=== PATIENT | female | born 1975 | race Two or more races ===

== ENCOUNTER → 2020-03-06 10:29 | Outpatient (BNVA) | payer OTHER, SELFPAY | PROVIDERS: PCP Internal Medicine; Visit Provider Hospitalist | DX: Z01.811 Encounter for preprocedural respiratory examination (principal); J45.50 Severe persistent asthma, uncomplicated; R07.9 Chest pain, unspecified; Z79.52 Long term (current) use of systemic steroids | CPT/HCPCS: 99214 ==

== ENCOUNTER → 2020-06-01 13:18 | Outpatient (BNVA) | payer OTHER, SELFPAY | PROVIDERS: PCP Internal Medicine; Visit Provider Hospitalist | DX: Z13.89 Encounter for screening for other disorder (principal) ==

== ENCOUNTER → 2020-07-05 14:12 | Outpatient (BNVA) | payer OTHER, SELFPAY | PROVIDERS: PCP Internal Medicine; Visit Provider Physician Assistant ==

== ENCOUNTER → 2020-07-13 09:06 | Outpatient (BNVA) | payer OTHER, SELFPAY | PROVIDERS: PCP Internal Medicine; Visit Provider Hospitalist ==

== ENCOUNTER → 2020-07-25 11:34 | Outpatient (BNVA) | payer OTHER, SELFPAY | PROVIDERS: PCP Internal Medicine; Visit Provider Physician Assistant ==

== ENCOUNTER → 2020-08-16 10:18 | Outpatient (BNVA) | payer OTHER, SELFPAY | PROVIDERS: PCP Internal Medicine; Visit Provider Physician Assistant ==

== ENCOUNTER → 2020-09-11 11:07 | Outpatient (BNVA) | payer OTHER, SELFPAY | PROVIDERS: PCP Internal Medicine; Visit Provider Hospitalist | DX: J45.50 Severe persistent asthma, uncomplicated (principal); J30.9 Allergic rhinitis, unspecified | CPT/HCPCS: 99212 ==

== ENCOUNTER → 2021-03-05 10:44 | Outpatient (BNVA) | payer OTHER, SELFPAY | PROVIDERS: PCP Internal Medicine; Visit Provider Hospitalist | DX: J45.50 Severe persistent asthma, uncomplicated (principal); J30.9 Allergic rhinitis, unspecified | CPT/HCPCS: 99212 ==

== ENCOUNTER → 2021-06-15 13:56 | Outpatient (BNVA) | payer OTHER, SELFPAY | PROVIDERS: PCP Internal Medicine; Visit Provider Hospitalist ==

== ENCOUNTER → 2021-07-20 11:04 | Outpatient (BNVA) | payer OTHER, SELFPAY | PROVIDERS: PCP Internal Medicine; Visit Provider Hospitalist ==

== ENCOUNTER → 2021-11-22 13:24 | Outpatient (BNVA) | payer OTHER, SELFPAY | PROVIDERS: PCP Internal Medicine; Visit Provider Hospitalist | DX: J45.51 Severe persistent asthma with (acute) exacerbation (principal); J30.9 Allergic rhinitis, unspecified; J01.90 Acute sinusitis, unspecified; R13.10 Dysphagia, unspecified | CPT/HCPCS: 99212 ==

== ENCOUNTER → 2022-05-22 10:20 | Outpatient (BNVA) | payer OTHER, SELFPAY | PROVIDERS: PCP Internal Medicine; Visit Provider Hospitalist | DX: Z01.811 Encounter for preprocedural respiratory examination (principal); J45.51 Severe persistent asthma with (acute) exacerbation; J30.9 Allergic rhinitis, unspecified; Z79.899 Other long term (current) drug therapy | CPT/HCPCS: 99212 ==

== ENCOUNTER → 2022-09-23 09:58 | Outpatient (BNVA) | payer OTHER, SELFPAY | PROVIDERS: PCP Internal Medicine; Visit Provider Hospitalist | DX: J45.51 Severe persistent asthma with (acute) exacerbation (principal); J30.9 Allergic rhinitis, unspecified; J44.9 Chronic obstructive pulmonary disease, unspecified | CPT/HCPCS: 99212 ==

== ENCOUNTER 2022-10-14 09:06 | Outpatient (REF) | payer OTHER, SELFPAY | END 2022-10-14 09:07 | disposition home or self-care (01) | LOC: HO.MDS 09:06 | PROVIDERS: Visit Provider Hospitalist | DX: J45.50 Severe persistent asthma, uncomplicated (principal) | CPT/HCPCS: 96372; J2356 ==

== ENCOUNTER → 2022-10-17 09:53 | Outpatient (BNVA) | payer OTHER, SELFPAY | PROVIDERS: PCP Internal Medicine; Visit Provider Hospitalist | DX: J45.51 Severe persistent asthma with (acute) exacerbation (principal); J30.9 Allergic rhinitis, unspecified; J44.9 Chronic obstructive pulmonary disease, unspecified; Z79.899 Other long term (current) drug therapy | CPT/HCPCS: 99212 ==

== ENCOUNTER 2022-11-11 09:49 | Outpatient (REF) | payer OTHER, SELFPAY | END 2022-11-11 09:50 | disposition home or self-care (01) | LOC: HO.MDS 09:49 | PROVIDERS: Visit Provider Hospitalist | DX: J45.50 Severe persistent asthma, uncomplicated (principal) | CPT/HCPCS: 96372; J2356 ==

== ENCOUNTER 2022-12-16 10:15 | Outpatient (AMB) | payer OTHER, SELFPAY ==
[2022-12-16 10:21] VITALS: BP 110/70; PULSE 84; O2SAT 98; BMI 37.6
--- NOTE | 2022-12-16 10:21 | MHC.OFFVIS ---
Intake Vital Signs 12/16/22 10:21 Height 5 ft 1 in Weight 199 lb BMI 37.6 BP 110/70 Blood Pressure Location Lt brachial Position Standing Pulse 84 Pulse Source Pulse Oximeter Pulse Oximetry (%) 98 Oxygen Delivery Method Room Air Intake Visit Reasons: Asthma Intake Note: pt is here for follow up and states she is okay, but concerned about lab work. Allergies tramadol [TRAMADOL] Allergy (Severe, Verified 12/16/22 10:26) THROAT SWELLING HPI HPI Comments History of Present Illness Details The patient is a 47-year-old woman with a known history of severe persistent asthma. currently she is complaining of a significant foot pain due to significant bunion. She did follow-up with podiatry and they recommended surgery. She is having significant pain and has a hard time walking on it. The patient's respiratory status has been doing well, but, requiring 10 mg of prednisone daily. Explained to her that with her severe persistent asthma in her need for steroids that she has high risk for perioperative pulmonary complications. She also will have a difficult time with the healing process. She understands that she does have increased risks due to her comorbidities, but, her pain and physical limitation is still significant that she would like to have this surgically corrected. I explained to her that for her to be able to get surgery she will need to wean off the steroids to allow her the best chance to heal from surgery and will also maximize her respiratory therapy at this time. 11/22/2021 the patient is here for a pulmonary follow-up visit. She has had events full several months after starting the bronchial thermoplastic therapy. She is doing at [facility]. After the 1st thermal plasty the patient required a prednisone taper for an asthma exacerbation. The 2nd intervention the patient required hospitalization to the ICU and was intubated. Now she is scheduled to undergo her 3rd intervention. She has automatically going to be admitted to the hospital after this 1. after that she will be completing the therapy plasty and hopefully after the the recovery. Will start seeing some patient understands that she still have asthma but just a degree bronchospasm should be last. However, today she has significant shortness of breath and wheezing. She denies any sick contacts. She will need to start prednisone taper prior to her next thermoplasty. 02/08/2022 the patient has a telehealth visit today. Recently she was exposed to positive sick contact and started developing a sore throat couple days ago. She did test positive for COVID-19. She has had worsening cough in addition to fevers and chills and nausea. She went to an urgent care although she was not given packs Flovent. The patient does have significant asthma and she has been using her nebulized therapy frequently. The patient was placed on a prednisone taper but now down to about 20 mg of prednisone. Therefore we talked about the antiviral medication. In view of her significant respiratory disease I do believe she should start Paxlovid. I will send to the pharmacy. She understands that she cannot take any additional prednisone and if she is able she should be able to come off it while on the Paxlovid. She continue all respiratory medicines as prescribed. The patient is status post thermal bronchialplasty. she did have significant exacerbations afterwards but then her symptoms subsided. Will reassess her response to the intervention during the next visit. 05/22/2022 the patient is here for a pulmonary follow-up visit. She is status post bronchial thermoplastic. She still has not seen any significant improvement with her breathing. She still requiring all her respiratory medications. However, she has not required any prednisone which is reassuring. She now has issues with her ankle and foot along with gynecological issues. She is scheduled to undergo podiatric surgery the beginning of June. She continues to have severe asthma. At this point she is optimize. She is currently not on prednisone. Although she still has moderate to high risk for perioperative pulmonary complications. The patient is aware of these risks. I did provide her with a letter for her preoperative pulmonary evaluation. 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 She also also has had seizures after anesthesia. Therefore I would recommend avoiding general anesthesia if possible. Patient also will need pre and post bronchodilator therapy. 09/23/2022 the patient is here for a pulmonary follow-up visit. A she was recently hospitalized at [facility] for about 8 days with an asthma exacerbation. Apparently she was getting her PFTs done and she developed an exacerbation was admitted to the hospital. She was placed on IV steroids and currently weaning down. She still has wheezing. She is status post bronchopleural plasty. It appears that he has not been as effective as 1 hope. In the meantime she continues on high-dose this of steroids. She continues on a very extensive inhaler regimen. The patient has already tried multiple biologics including Xolair, Dupixent and I will 5 inhibitor. In view of her see very severe asthma with frequent exacerbations now failed multiple biologics . believe that initiating hnd thermoplasty the on a TSLP inhibitor will be a very good option for her. Will start the process to do so. She did have blood work already at [facility]. She also continues on Daliresp. This has been helpful partially decreasing her exacerbations in decreasing the amount of prednisone. Will go ahead and continue the Daliresp at this time. We did talk about inhalers will try to simplify her respiratory regimen and I did write down for her to minimize confusion. 10/17/2022 the patient is here for pulmonary follow-up visit. The patient did receive her 1st test prior injection. After she did have significant amount the muscle aches. She was started on Tylenol and also on nonsteroidal therapy. Seems to be better controlled. She seems to have tolerated the injection otherwise. Seems like her asthma is a little better. In the meantime breast tree is not working well for her. She did have an Advair available and she used that recently and seemed to work better for her. She would rather be on Advair HFA. I will send 1 to the pharmacy but she knows to stop the breasts treat inhaler. The patient also has been taking 10 mg of prednisone. I am hopeful that we can decrease that down to 5 mg. Otherwise patient is doing well. No any other additional changes. Will make sure that she has an EpiPen available for any severe reactions 12/16/2022 the patient is here for pulmonary follow-up visit. The patient still having hard time with her breathing. Partly did humidity in the fires. She did not respond to the thermoplasty. There recommended repeating the bronchoscopy in barium swallow early. I did recommend she complete done on hold the bronchoscopy procedures we can do the barium swallow locally. The patient has been off prednisone which is reassuring. She continues on the biologic therapy. She will get an injection today. She feels like she is having increased cough with chest congestion. Feels that she is having bronchitis. Will go ahead and treated with azithromycin. The patient has been using her nebulizer. I did provide her with a Malinda system for better administration of her medication. [facility] Medical History (Updated 09/23/22 @ 20:42 by Haresh Rico MD) Asthma Asthma-COPD overlap syndrome Bunion Chronic allergic rhinitis COVID-19 Dysphagia Nasal airway abnormality KEITH (obstructive sleep apnea) Family History Paternal Grandfather Cancer Other Asthma Social History Household Members: Spouse Alcohol intake: current Alcohol intake frequency: holidays/special occasions only Alcohol type: wine Patient Tobacco Use Status: Never used Tobacco Current occupational status: retired Review of Systems Const Denies chills, Denies fever(s), Denies headache(s), Denies night sweats and Reports weight loss ENT Denies change in voice, Denies headache(s), Denies lip swelling, Denies mouth pain, Reports nasal congestion, Reports nasal discharge and Denies tongue swelling Card Denies chest pain and Denies dyspnea on exertion Resp Denies change in phlegm color, Denies chest congestion, Reports cough, Denies hemoptysis, Denies dyspnea on exertion and Reports wheezing GI Denies abdominal pain Neuro Denies Neuro-related abnormal movements and Denies headache(s) Psych Denies no additional complaints Oleksandr/Lymph Denies easy bleeding and Denies lymphadenopathy Aller/Immun Denies lip swelling, Denies tongue swelling and Reports wheezing Physical Exam Vital Signs: Last Vital Signs Pulse 84 12/16/22 10:21 BP 110/70 12/16/22 10:21 Pulse Ox 98 12/16/22 10:21 Oxygen Delivery Method Room Air 12/16/22 10:21 BMI result Body Mass Index 37.6 Const General: alert Neck Neck: Yes normal visual inspection, Yes full ROM and Yes no lymphadenopathy Chest Chest palpation & inspection: normal inspection of the chest Resp Auscultation: wheezes and diminished lung sounds Cardio Rate: regular rate Rhythm: regular rhythm Heart sounds: S1 normal heart sound present and S2 normal heart sound present GI Palpation (GI): Soft to palpation and nontender Auscultation: normal bowel sounds Skin General skin exam: rashes and/or lesions noted Assessment & Plan Assessment & Plan (1) Asthma: Code(s): J45.909 - Unspecified asthma, uncomplicated Qualifiers: Asthma complication type: with acute exacerbation Asthma persistence: persistent Asthma severity: severe Qualified Code(s): J45.51 - Severe persistent asthma with (acute) exacerbation (2) Chronic allergic rhinitis: Code(s): J30.9 - Allergic rhinitis, unspecified (3) Asthma-COPD overlap syndrome: Code(s): J44.9 - Chronic obstructive pulmonary disease, unspecified Plan continue Breztri continue combivent, Albuterol HFA continue nebulized therapy as needed Bloodwork/VBG barium swallow start Azithromycin MWF continue Daliresp Epi pen as needed off prednisone at this time continue Tezspire (monitor musculoskeletal adverse effects) Follow-up in 4-6 weeks Orders: Orders FL barium swallow Today K21.9 - Gastro-esophageal reflux disease without esophagitis Venous Blood Gas Today J44.9 - Chronic obstructive pulmonary disease, unspecified Complete Blood Count Auto Diff Today J44.9 - Chronic obstructive pulmonary disease, unspecified Erythrocyte Sedimentation Rate Today J44.9 - Chronic obstructive pulmonary disease, unspecified YIMI Reflex Titer and Pattern Today J44.9 - Chronic obstructive pulmonary disease, unspecified Hypersensitive Pneumonitis Prf Today J44.9 - Chronic obstructive pulmonary disease, unspecified, R91.8 - Other nonspecific abnormal finding of lung field Immunoglobulin E Today J44.9 - Chronic obstructive pulmonary disease, unspecified Immunoglobulins,IgG IgA IgM Today J44.9 - Chronic obstructive pulmonary disease, unspecified Medications: New azithromycin Take 1 tablet on Friday/Friday/Friday 250 mg PO 3XW 28 days 12 tabs 6RF K21.9 - Gastro-esophageal reflux disease without esophagitis prednisone PO daily; Take 6 tabs daily x 3 days, then 5 tabs x 3 days, then 4 tabs x 3 days, then 3 tabs x 3 days, then 2 tabs daily x 3 days, then 1 tab x 3 days to complete. 18 days 63 tabs 0RF Refilled codeine-guaifenesin 10-100 mg/5 mL 10 mL PO Q6H 10 days PRN 300 mL 0RF cough Coding Level of Care Code Est Pt Level 4 (07253) Diagnoses Asthma J45.51 Asthma complication type: with acute exacerbation Asthma persistence: persistent Asthma severity: severe Chronic allergic rhinitis J30.9 Asthma-COPD overlap syndrome J44.9 Time Spent (min) 18
== END 2022-12-16 10:48 | disposition home or self-care (01) ==
PROVIDERS: PCP Internal Medicine; Visit Provider Hospitalist
DX: J45.51 Severe persistent asthma with (acute) exacerbation (principal)
CPT/HCPCS: 99214

== ENCOUNTER 2022-12-16 10:58 | Outpatient (REF) | payer OTHER, SELFPAY | END 2022-12-16 10:59 | disposition home or self-care (01) | LOC: HO.MDS 10:58 | PROVIDERS: Visit Provider Hospitalist | DX: J45.50 Severe persistent asthma, uncomplicated (principal) | CPT/HCPCS: 96372; 99212; J2356 ==

== ENCOUNTER 2023-01-21 10:05 | Outpatient (REF) | payer OTHER, SELFPAY | END 2023-01-21 10:06 | disposition home or self-care (01) | LOC: HO.MDS 10:05 | PROVIDERS: Visit Provider Hospitalist | DX: J45.50 Severe persistent asthma, uncomplicated (principal) | CPT/HCPCS: 96372; J2356 ==

== ENCOUNTER 2023-03-06 09:52 | Outpatient (AMB) | payer OTHER, SELFPAY ==
[2023-03-06 10:07] VITALS: PULSE 89; O2SAT 98; BMI 37.6
--- NOTE | 2023-03-06 10:07 | MHC.OFFVIS ---
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 currently she is complaining of a significant foot pain due to significant bunion. She did follow-up with podiatry and they recommended surgery. She is having significant pain and has a hard time walking on it. The patient's respiratory status has been doing well, but, requiring 10 mg of prednisone daily. Explained to her that with her severe persistent asthma in her need for steroids that she has high risk for perioperative pulmonary complications. She also will have a difficult time with the healing process. She understands that she does have increased risks due to her comorbidities, but, her pain and physical limitation is still significant that she would like to have this surgically corrected. I explained to her that for her to be able to get surgery she will need to wean off the steroids to allow her the best chance to heal from surgery and will also maximize her respiratory therapy at this time. 11/22/2021 the patient is here for a pulmonary follow-up visit. She has had events full several months after starting the bronchial thermoplastic therapy. She is doing at [facility]. After the 1st thermal plasty the patient required a prednisone taper for an asthma exacerbation. The 2nd intervention the patient required hospitalization to the ICU and was intubated. Now she is scheduled to undergo her 3rd intervention. She has automatically going to be admitted to the hospital after this 1. after that she will be completing the therapy plasty and hopefully after the the recovery. Will start seeing some patient understands that she still have asthma but just a degree bronchospasm should be last. However, today she has significant shortness of breath and wheezing. She denies any sick contacts. She will need to start prednisone taper prior to her next thermoplasty. 02/08/2022 the patient has a telehealth visit today. Recently she was exposed to positive sick contact and started developing a sore throat couple days ago. She did test positive for COVID-19. She has had worsening cough in addition to fevers and chills and nausea. She went to an urgent care although she was not given packs Flovent. The patient does have significant asthma and she has been using her nebulized therapy frequently. The patient was placed on a prednisone taper but now down to about 20 mg of prednisone. Therefore we talked about the antiviral medication. In view of her significant respiratory disease I do believe she should start Paxlovid. I will send to the pharmacy. She understands that she cannot take any additional prednisone and if she is able she should be able to come off it while on the Paxlovid. She continue all respiratory medicines as prescribed. The patient is status post thermal bronchialplasty. she did have significant exacerbations afterwards but then her symptoms subsided. Will reassess her response to the intervention during the next visit. 05/22/2022 the patient is here for a pulmonary follow-up visit. She is status post bronchial thermoplastic. She still has not seen any significant improvement with her breathing. She still requiring all her respiratory medications. However, she has not required any prednisone which is reassuring. She now has issues with her ankle and foot along with gynecological issues. She is scheduled to undergo podiatric surgery the beginning of June. She continues to have severe asthma. At this point she is optimize. She is currently not on prednisone. Although she still has moderate to high risk for perioperative pulmonary complications. The patient is aware of these risks. I did provide her with a letter for her preoperative pulmonary evaluation. 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 She also also has had seizures after anesthesia. Therefore I would recommend avoiding general anesthesia if possible. Patient also will need pre and post bronchodilator therapy. 09/23/2022 the patient is here for a pulmonary follow-up visit. A she was recently hospitalized at [facility] for about 8 days with an asthma exacerbation. Apparently she was getting her PFTs done and she developed an exacerbation was admitted to the hospital. She was placed on IV steroids and currently weaning down. She still has wheezing. She is status post bronchopleural plasty. It appears that he has not been as effective as 1 hope. In the meantime she continues on high-dose this of steroids. She continues on a very extensive inhaler regimen. The patient has already tried multiple biologics including Xolair, Dupixent and I will 5 inhibitor. In view of her see very severe asthma with frequent exacerbations now failed multiple biologics . believe that initiating hnd thermoplasty the on a TSLP inhibitor will be a very good option for her. Will start the process to do so. She did have blood work already at [facility]. She also continues on Daliresp. This has been helpful partially decreasing her exacerbations in decreasing the amount of prednisone. Will go ahead and continue the Daliresp at this time. We did talk about inhalers will try to simplify her respiratory regimen and I did write down for her to minimize confusion. 10/17/2022 the patient is here for pulmonary follow-up visit. The patient did receive her 1st test prior injection. After she did have significant amount the muscle aches. She was started on Tylenol and also on nonsteroidal therapy. Seems to be better controlled. She seems to have tolerated the injection otherwise. Seems like her asthma is a little better. In the meantime breast tree is not working well for her. She did have an Advair available and she used that recently and seemed to work better for her. She would rather be on Advair HFA. I will send 1 to the pharmacy but she knows to stop the breasts treat inhaler. The patient also has been taking 10 mg of prednisone. I am hopeful that we can decrease that down to 5 mg. Otherwise patient is doing well. No any other additional changes. Will make sure that she has an EpiPen available for any severe reactions 12/16/2022 the patient is here for pulmonary follow-up visit. The patient still having hard time with her breathing. Partly did humidity in the fires. She did not respond to the thermoplasty. There recommended repeating the bronchoscopy in barium swallow early. I did recommend she complete done on hold the bronchoscopy procedures we can do the barium swallow locally. The patient has been off prednisone which is reassuring. She continues on the biologic therapy. She will get an injection today. She feels like she is having increased cough with chest congestion. Feels that she is having bronchitis. Will go ahead and treated with azithromycin. The patient has been using her nebulizer. I did provide her with a Malinda system for better administration of her medication. 03/06/2023 the patient is here for a pulmonary follow-up visit. The patient overall has been doing better. She is off the prednisone. Unfortunately she was admitted to [facility] with an asthma exacerbation also having chest discomfort. Also was noted to have a tachyarrhythmia of some type. I do not have the results of that. The patient did start the new biologic, Tezspire she continues to have a good amount of weight loss which is going to be helpful for her breathing. Right now she is off prednisone she is actually doing fairly well. The patient also has having issues with her knee. She was referred to orthopedic surgery for potential total knee replacement. I did recommend taking time to stabilize her knee with alternative therapies and try to hold off on knee replacement some to her breathing is better. Will try to also avoid albuterol to the best of our ability to try to minimize her tachyarrhythmia issues. Will try to use levo albuterol in the meantime. [facility] Medical History (Updated 03/06/23 @ 10:34 by Haresh Rico MD) Tachycardia Asthma-COPD overlap syndrome KEITH (obstructive sleep apnea) Chronic allergic rhinitis COVID-19 Nasal airway abnormality Bunion Dysphagia Asthma Family History Paternal Grandfather Cancer Other Asthma Social History Household Members: Spouse Alcohol intake: current Alcohol intake frequency: holidays/special occasions only Alcohol type: wine Patient Tobacco Use Status: Never used Tobacco Current occupational status: retired Review of Systems Const Denies chills, Denies fever(s), Denies headache(s), Denies night sweats and Reports weight loss ENT Denies change in voice, Denies headache(s), Denies lip swelling, Denies mouth pain, Reports nasal congestion, Reports nasal discharge and Denies tongue swelling Card Denies chest pain and Denies dyspnea on exertion Resp Denies change in phlegm color, Denies chest congestion, Reports cough, Denies hemoptysis, Denies dyspnea on exertion and Reports wheezing GI Denies abdominal pain Musc Reports abnormal gait, Reports myalgias and Reports arthralgias Neuro Denies Neuro-related abnormal movements, Reports abnormal gait and Denies headache(s) Psych Denies no additional complaints Oleksandr/Lymph Denies easy bleeding and Denies lymphadenopathy Aller/Immun Denies lip swelling, Denies tongue swelling and Reports wheezing Physical Exam Vital Signs: Last Vital Signs Pulse 89 03/06/23 10:07 Pulse Ox 98 03/06/23 10:07 Oxygen Delivery Method Room Air 03/06/23 10:07 BMI result Body Mass Index 37.6 Const General: alert Neck Neck: Yes normal visual inspection, Yes full ROM and Yes no lymphadenopathy Chest Chest palpation & inspection: normal inspection of the chest Resp Auscultation: wheezes and diminished lung sounds Cardio Rate: regular rate Rhythm: regular rhythm Heart sounds: S1 normal heart sound present and S2 normal heart sound present GI Palpation (GI): Soft to palpation and nontender Auscultation: normal bowel sounds Skin General skin exam: rashes and/or lesions noted Assessment & Plan Assessment & Plan (1) Asthma: Code(s): J45.909 - Unspecified asthma, uncomplicated Qualifiers: Asthma severity: severe Asthma persistence: persistent Asthma complication type: with acute exacerbation Qualified Code(s): J45.51 - Severe persistent asthma with (acute) exacerbation (2) Chronic allergic rhinitis: Code(s): J30.9 - Allergic rhinitis, unspecified (3) Asthma-COPD overlap syndrome: Code(s): J44.9 - Chronic obstructive pulmonary disease, unspecified Plan continue Breztri stop combivent, Albuterol HFA Xopenex to minimize tachycardia continue nebulized therapy as needed Bloodwork/ddimer barium swallow continue Azithromycin MWF continue Daliresp Epi pen as needed off prednisone at this time continue Tezspire (monitor musculoskeletal adverse effects) cardiology referral Follow-up in 4-6 weeks Orders: Orders Erythrocyte Sedimentation Rate Today J44.9 - Chronic obstructive pulmonary disease, unspecified, R00.0 - Tachycardia, unspecified Basic Metabolic Panel Today J44.9 - Chronic obstructive pulmonary disease, unspecified, R00.0 - Tachycardia, unspecified D Dimer High Sensitivity Today J44.9 - Chronic obstructive pulmonary disease, unspecified, R00.0 - Tachycardia, unspecified Troponin-I High Sensitivity Today J44.9 - Chronic obstructive pulmonary disease, unspecified, R00.0 - Tachycardia, unspecified Complete Blood Count Auto Diff Today J44.9 - Chronic obstructive pulmonary disease, unspecified, R00.0 - Tachycardia, unspecified TSH reflex Free T4 Today J44.9 - Chronic obstructive pulmonary disease, unspecified, R00.0 - Tachycardia, unspecified Referrals Cardiology Referral R00.0 - Tachycardia, unspecified Medications: New loratadine (Claritin) 10 mg PO DAILY 30 days 30 tabs 11RF J30.2 - Other seasonal allergic rhinitis, J45.909 - Unspecified asthma, uncomplicated levalbuterol tartrate 45 mcg/actuation (Xopenex HFA) 2 puffs inhalation Q6H 30 days PRN 15 grams 11RF shortness of breath or wheezing J45.909 - Unspecified asthma, uncomplicated levalbuterol HCl 1.25 mg (3 mL) inhalation BID 30 days 360 mL 11RF J44.9 - Chronic obstructive pulmonary disease, unspecified Discontinued ipratropium-albuterol 20-100 mcg/actuation (Combivent Respimat) Discontinued Reason: Doctor's Order 1 puff inhalation QID 4 mL 2RF Coding Level of Care Code Est Pt Level 5 (98510) Diagnoses Severe persistent asthma with acute exacerbation J45.51 Asthma severity: severe Asthma persistence: persistent Asthma complication type: with acute exacerbation Chronic allergic rhinitis J30.9 Asthma-COPD overlap syndrome J44.9 Time Spent (min) 45
== END 2023-03-06 10:45 | disposition home or self-care (01) ==
PROVIDERS: PCP Internal Medicine; Visit Provider Hospitalist
DX: J45.51 Severe persistent asthma with (acute) exacerbation (principal)
CPT/HCPCS: 99215

== ENCOUNTER 2023-03-06 10:41 | Outpatient (REF) | payer OTHER, SELFPAY | END 2023-03-06 10:42 | disposition home or self-care (01) | LOC: HO.MDS 10:41 | PROVIDERS: PCP Internal Medicine; Visit Provider Hospitalist | DX: J45.50 Severe persistent asthma, uncomplicated (principal); J44.9 Chronic obstructive pulmonary disease, unspecified | CPT/HCPCS: 36415; 85025; 85652; 96372; 99212; J2356 ==

== ENCOUNTER 2023-03-12 09:17 | Outpatient (REF) | payer OTHER, SELFPAY | END 2023-03-12 09:18 | disposition home or self-care (01) | LOC: HO.XRAY 09:17 | PROVIDERS: PCP Internal Medicine; Visit Provider Hospitalist | DX: K21.9 Gastro-esophageal reflux disease without esophagitis (principal) | CPT/HCPCS: 74220 ==

== ENCOUNTER → 2023-03-12 09:17 | Outpatient (BNV) | payer OTHER, SELFPAY | PROVIDERS: PCP Internal Medicine; Visit Provider Radiology Diagnostic Radiology | DX: K21.9 Gastro-esophageal reflux disease without esophagitis (principal) | CPT/HCPCS: 74221 ==

== ENCOUNTER 2023-03-26 10:53 | Outpatient (AMB) | payer OTHER, SELFPAY ==
--- NOTE | 2023-03-26 11:06 | MHC.OFFVIS ---
Intake Vital Signs 03/26/23 11:07 Height 5 ft 1 in Weight 199 lb 15.348 oz BMI 37.8 BP 118/70 Blood Pressure Location Lt brachial Position Sitting Pulse 88 Pulse Source Pulse Oximeter Pulse Oximetry (%) 98 Oxygen Delivery Method Room Air Intake Visit Reasons: asthma Geriatric Social Worker Required: No Allergies tramadol [TRAMADOL] Allergy (Severe, Verified 03/26/23 11:10) THROAT SWELLING HPI HPI Comments History of Present Illness Details The patient is a 47-year-old woman with a known history of severe persistent asthma. currently she is complaining of a significant foot pain due to significant bunion. She did follow-up with podiatry and they recommended surgery. She is having significant pain and has a hard time walking on it. The patient's respiratory status has been doing well, but, requiring 10 mg of prednisone daily. Explained to her that with her severe persistent asthma in her need for steroids that she has high risk for perioperative pulmonary complications. She also will have a difficult time with the healing process. She understands that she does have increased risks due to her comorbidities, but, her pain and physical limitation is still significant that she would like to have this surgically corrected. I explained to her that for her to be able to get surgery she will need to wean off the steroids to allow her the best chance to heal from surgery and will also maximize her respiratory therapy at this time. 11/22/2021 the patient is here for a pulmonary follow-up visit. She has had events full several months after starting the bronchial thermoplastic therapy. She is doing at [facility]. After the 1st thermal plasty the patient required a prednisone taper for an asthma exacerbation. The 2nd intervention the patient required hospitalization to the ICU and was intubated. Now she is scheduled to undergo her 3rd intervention. She has automatically going to be admitted to the hospital after this 1. after that she will be completing the therapy plasty and hopefully after the the recovery. Will start seeing some patient understands that she still have asthma but just a degree bronchospasm should be last. However, today she has significant shortness of breath and wheezing. She denies any sick contacts. She will need to start prednisone taper prior to her next thermoplasty. 02/08/2022 the patient has a telehealth visit today. Recently she was exposed to positive sick contact and started developing a sore throat couple days ago. She did test positive for COVID-19. She has had worsening cough in addition to fevers and chills and nausea. She went to an urgent care although she was not given packs Flovent. The patient does have significant asthma and she has been using her nebulized therapy frequently. The patient was placed on a prednisone taper but now down to about 20 mg of prednisone. Therefore we talked about the antiviral medication. In view of her significant respiratory disease I do believe she should start Paxlovid. I will send to the pharmacy. She understands that she cannot take any additional prednisone and if she is able she should be able to come off it while on the Paxlovid. She continue all respiratory medicines as prescribed. The patient is status post thermal bronchialplasty. she did have significant exacerbations afterwards but then her symptoms subsided. Will reassess her response to the intervention during the next visit. 05/22/2022 the patient is here for a pulmonary follow-up visit. She is status post bronchial thermoplastic. She still has not seen any significant improvement with her breathing. She still requiring all her respiratory medications. However, she has not required any prednisone which is reassuring. She now has issues with her ankle and foot along with gynecological issues. She is scheduled to undergo podiatric surgery the beginning of June. She continues to have severe asthma. At this point she is optimize. She is currently not on prednisone. Although she still has moderate to high risk for perioperative pulmonary complications. The patient is aware of these risks. I did provide her with a letter for her preoperative pulmonary evaluation. I did recommend spinal or nerve block for her knee surery. General anesthesia for her unfortunately results in significant bronchospasms and also severe vocal cord dysfunction. She also also has had seizures after anesthesia. Therefore I would recommend avoiding general anesthesia if possible. Patient also will need pre and post bronchodilator therapy. 09/23/2022 the patient is here for a pulmonary follow-up visit. A she was recently hospitalized at [facility] for about 8 days with an asthma exacerbation. Apparently she was getting her PFTs done and she developed an exacerbation was admitted to the hospital. She was placed on IV steroids and currently weaning down. She still has wheezing. She is status post bronchopleural plasty. It appears that he has not been as effective as 1 hope. In the meantime she continues on high-dose this of steroids. She continues on a very extensive inhaler regimen. The patient has already tried multiple biologics including Xolair, Dupixent and I will 5 inhibitor. In view of her see very severe asthma with frequent exacerbations now failed multiple biologics . believe that initiating hnd thermoplasty the on a TSLP inhibitor will be a very good option for her. Will start the process to do so. She did have blood work already at [facility]. She also continues on Daliresp. This has been helpful partially decreasing her exacerbations in decreasing the amount of prednisone. Will go ahead and continue the Daliresp at this time. We did talk about inhalers will try to simplify her respiratory regimen and I did write down for her to minimize confusion. 10/17/2022 the patient is here for pulmonary follow-up visit. The patient did receive her 1st test prior injection. After she did have significant amount the muscle aches. She was started on Tylenol and also on nonsteroidal therapy. Seems to be better controlled. She seems to have tolerated the injection otherwise. Seems like her asthma is a little better. In the meantime breast tree is not working well for her. She did have an Advair available and she used that recently and seemed to work better for her. She would rather be on Advair HFA. I will send 1 to the pharmacy but she knows to stop the breasts treat inhaler. The patient also has been taking 10 mg of prednisone. I am hopeful that we can decrease that down to 5 mg. Otherwise patient is doing well. No any other additional changes. Will make sure that she has an EpiPen available for any severe reactions 12/16/2022 the patient is here for pulmonary follow-up visit. The patient still having hard time with her breathing. Partly did humidity in the fires. She did not respond to the thermoplasty. There recommended repeating the bronchoscopy in barium swallow early. I did recommend she complete done on hold the bronchoscopy procedures we can do the barium swallow locally. The patient has been off prednisone which is reassuring. She continues on the biologic therapy. She will get an injection today. She feels like she is having increased cough with chest congestion. Feels that she is having bronchitis. Will go ahead and treated with azithromycin. The patient has been using her nebulizer. I did provide her with a Malinda system for better administration of her medication. 03/06/2023 the patient is here for a pulmonary follow-up visit. The patient overall has been doing better. She is off the prednisone. Unfortunately she was admitted to [facility] with an asthma exacerbation also having chest discomfort. Also was noted to have a tachyarrhythmia of some type. I do not have the results of that. The patient did start the new biologic, Tezspire she continues to have a good amount of weight loss which is going to be helpful for her breathing. Right now she is off prednisone she is actually doing fairly well. The patient also has having issues with her knee. She was referred to orthopedic surgery for potential total knee replacement. I did recommend taking time to stabilize her knee with alternative therapies and try to hold off on knee replacement some to her breathing is better. Will try to also avoid albuterol to the best of our ability to try to minimize her tachyarrhythmia issues. Will try to use levo albuterol in the meantime. 03/26/2023 the patient is here for preop evaluation. She is having hard time with her breathing lately. She has been having increasing chest tightness and wheezing. Moderate severity. She has been using all her respiratory therapy. Unfortunately she has had issues with tachycardia and therefore trying to minimize some of her inhalers and also simplify her regimen. She is going to use the Xopenex and avoid the Combivent and Ventolin. She does continue to use her maintenance inhaler. The patient also has been responding well to her biologic therapy once a month. At this point the patient has significant osteoarthritis and is recommended to have a total knee replacement. However, her asthma is not in good control and now she is awaiting also cardiology evaluation for the tachycardia. I am hopeful that with the biologic therapy we can start improving her respiratory capacity to the point that she should better handle anesthesia. She has had already severe reactions to general anesthesia. Therefore, at this point my recommendation is for her not to undergo any elective surgeries until her respiratory status and cardiac status are stable. I am hopeful that we can reassess in the next few months and be able to improve her respiratory status prior to any invasive interventions. [facility] Medical History (Updated 03/26/23 @ 20:35 by Haresh Rico MD) Tachycardia Asthma-COPD overlap syndrome KEITH (obstructive sleep apnea) Chronic allergic rhinitis COVID-19 Nasal airway abnormality Bunion Dysphagia Asthma Family History Paternal Grandfather Cancer Other Asthma Social History Household Members: Spouse Alcohol intake: current Alcohol intake frequency: holidays/special occasions only Alcohol type: wine Patient Tobacco Use Status: Never used Tobacco Current occupational status: retired Review of Systems Const Denies chills, Denies fever(s), Denies headache(s), Denies night sweats and Reports weight loss ENT Denies change in voice, Denies headache(s), Denies lip swelling, Denies mouth pain, Reports nasal congestion, Reports nasal discharge and Denies tongue swelling Card Denies chest pain and Reports dyspnea on exertion Resp Denies change in phlegm color, Denies chest congestion, Reports cough, Denies hemoptysis, Reports dyspnea on exertion and Reports wheezing GI Denies abdominal pain Musc Reports as per HPI, Reports abnormal gait, Reports myalgias, Reports arthralgias and Reports limited range of motion Neuro Denies Neuro-related abnormal movements, Reports abnormal gait and Denies headache(s) Psych Denies no additional complaints Oleksandr/Lymph Denies easy bleeding and Denies lymphadenopathy Aller/Immun Denies lip swelling, Denies tongue swelling and Reports wheezing Physical Exam Vital Signs: Last Vital Signs Pulse 88 03/26/23 11:07 BP 118/70 03/26/23 11:07 Pulse Ox 98 03/26/23 11:07 Oxygen Delivery Method Room Air 03/26/23 11:07 BMI result Body Mass Index 37.8 Const General: alert Neck Neck: Yes normal visual inspection, Yes full ROM and Yes no lymphadenopathy Chest Chest palpation & inspection: normal inspection of the chest Resp Effort & Inspection: normal respiratory effort and prolonged expiratory phase Auscultation: wheezes and diminished lung sounds Cardio Rate: regular rate Rhythm: regular rhythm Heart sounds: S1 normal heart sound present and S2 normal heart sound present GI Palpation (GI): Soft to palpation and nontender Auscultation: normal bowel sounds Skin General skin exam: rashes and/or lesions noted Assessment & Plan Assessment & Plan (1) Pre-op chest exam: Comment: The patient does have high risk for perioperative pulmonary complications which include: laryngopasms, seizures, asthma exacerbation, atelectasis, hypoxia, pneumonia, prolonged mechanical ventilation and . She is not stable at this time from a respiratory standpoint and I do not recommend elective surgery at this point. I am hopeful that with the current therapy she will have improvement in the coming months. Also due to her tachycardia we are awaiting a cardiology evaluation. Code(s): Z01.811 - Encounter for preprocedural respiratory examination (2) Asthma: Comment: s/p Thermoplasty Code(s): J45.909 - Unspecified asthma, uncomplicated Qualifiers: Asthma complication type: with acute exacerbation Asthma persistence: persistent Asthma severity: severe Qualified Code(s): J45.51 - Severe persistent asthma with (acute) exacerbation (3) Chronic allergic rhinitis: Code(s): J30.9 - Allergic rhinitis, unspecified (4) Asthma-COPD overlap syndrome: Code(s): J44.9 - Chronic obstructive pulmonary disease, unspecified Plan continue Breztri stop combivent, Albuterol HFA due to tachycardia Xopenex to minimize tachycardia continue nebulized therapy as needed hold Azithromycin MWF start prednisone taper start Doxycycline continue Daliresp Epi pen as needed off prednisone at this time continue Tezspire (monitor musculoskeletal adverse effects) cardiology referral pending Follow-up in 8-12 weeks Medications: New codeine-guaifenesin 10-100 mg/5 mL 10 mL PO Q6H 10 days PRN 300 mL 0RF cough doxycycline hyclate 100 mg PO BID 10 days 20 caps 0RF prednisone PO daily; Take 6 tabs daily x 3 days, then 5 tabs x 3 days, then 4 tabs x 3 days, then 3 tabs x 3 days, then 2 tabs daily x 3 days, then 1 tab x 3 days to complete. 18 days 63 tabs 0RF Coding Level of Care Code Est Pt Level 4 (74901) Diagnoses Pre-op chest exam Z01.811 Severe persistent asthma with acute exacerbation J45.51 Asthma complication type: with acute exacerbation Asthma persistence: persistent Asthma severity: severe Chronic allergic rhinitis J30.9 Asthma-COPD overlap syndrome J44.9 Time Spent (min) 18
[2023-03-26 11:07] VITALS: BP 118/70; PULSE 88; O2SAT 98; BMI 37.8
== END 2023-03-26 11:30 | disposition home or self-care (01) ==
PROVIDERS: PCP Internal Medicine; Visit Provider Hospitalist
DX: Z01.811 Encounter for preprocedural respiratory examination (principal); J45.51 Severe persistent asthma with (acute) exacerbation; J30.9 Allergic rhinitis, unspecified; J44.9 Chronic obstructive pulmonary disease, unspecified
CPT/HCPCS: 99214

== ENCOUNTER → 2023-03-26 10:53 | Outpatient (BNVA) | payer OTHER, SELFPAY | PROVIDERS: PCP Internal Medicine; Visit Provider Hospitalist | DX: Z01.811 Encounter for preprocedural respiratory examination (principal); J45.51 Severe persistent asthma with (acute) exacerbation; J30.9 Allergic rhinitis, unspecified; J44.9 Chronic obstructive pulmonary disease, unspecified | CPT/HCPCS: 99212 ==

== ENCOUNTER 2023-05-06 13:51 | Outpatient (AMB) | payer OTHER, SELFPAY ==
[2023-05-06 13:54] VITALS: PULSE 92; O2SAT 98; BMI 37.8
--- NOTE | 2023-05-06 13:54 | A.OFFVIS_ITS ---
Intake Vital Signs 05/06/23 13:54 Height 5 ft 1 in Weight 199 lb 15.348 oz BMI 37.8 Pulse 92 Pulse Source Pulse Oximeter Pulse Oximetry (%) 98 Oxygen Delivery Method Room Air Intake Visit Reasons: pre-op clearance Allergies tramadol [TRAMADOL] Allergy (Severe, Verified 05/06/23 13:55) THROAT SWELLING HPI HPI Comments History of Present Illness Details The patient is a 47-year-old woman with a known history of severe persistent asthma s/p tracheobronplasty. 05/06/2023 the patient is here for a pulm onary follow-up visit. This is a preoperative evaluation. The patient does have severe persistent asthma. She recently started a new biologic regimen which appears to be effective for. During the last visit in March she did require antibiotics and prednisone. Clinically she is doing significantly better now on the biologics. The patient has been using her maintenance therapy and also her rescue medicine as needed. However, has not required any additional antibiotics or prednisone. She continues the tezspire every 4 weeks. Unfortunately, a 7 did the she is having significant knee pain. She did follow-up with orthopedic surgery and there was no other option but surgery. Therefore, she is here for preoperative evaluation. Clinically she is doing a lot better without any significant wheezing on examination. She is also with good adherence with respiratory therapy. I do not see any reason for her not to have surgery at this time as this is a very good window of opportunity for her to undergo her surgery. She has tolerated general anesthesia in the past. Post procedure and anesthesia she has had issue with vocal cord dysfunction therefore needs to be monitor. She is also has history significant bronchospasms after surgery. Therefore, she should also be provided with post bronchodilator therapy. I foresee that she will do well even with her significant asthma. Specially, since she is on a better regimen of medications at this time and seems to be controlling her asthma very well. Her [facility] Medical History (Updated 05/06/23 @ 14:00 by Haresh Rico MD) Tachycardia Asthma-COPD overlap syndrome KEITH (obstructive sleep apnea) Chronic allergic rhinitis COVID-19 Nasal airway abnormality Bunion Dysphagia Asthma Family History Paternal Grandfather Cancer Other Asthma Social History Household Members: Spouse Alcohol intake: current Alcohol intake frequency: holidays/special occasions only Alcohol type: wine Patient Tobacco Use Status: Never used Tobacco Current occupational status: retired Review of Systems Const Denies chills, Denies fever(s), Denies headache(s), Denies night sweats and Reports weight loss ENT Denies change in voice, Denies headache(s), Denies lip swelling, Denies mouth pain, Reports nasal congestion, Reports nasal discharge and Denies tongue swelling Card Denies chest pain and Reports dyspnea on exertion Resp Denies change in phlegm color, Denies chest congestion, Reports cough, Denies hemoptysis, Reports dyspnea on exertion and Denies wheezing GI Denies abdominal pain Musc Reports as per HPI, Reports abnormal gait, Reports myalgias, Reports arthralgias and Reports limited range of motion Neuro Denies Neuro-related abnormal movements, Reports abnormal gait and Denies headache(s) Psych Denies no additional complaints Oleksandr/Lymph Denies easy bleeding and Denies lymphadenopathy Aller/Immun Denies lip swelling, Denies tongue swelling and Denies wheezing Physical Exam Vital Signs: Last Vital Signs Pulse 92 05/06/23 13:54 Pulse Ox 98 05/06/23 13:54 Oxygen Delivery Method Room Air 05/06/23 13:54 BMI result Body Mass Index 37.8 Const General: alert Neck Neck: Yes normal visual inspection, Yes full ROM and Yes no lymphadenopathy Chest Chest palpation & inspection: normal inspection of the chest Resp Effort & Inspection: normal respiratory effort and No prolonged expiratory phase Auscultation: no wheezes and diminished lung sounds Cardio Rate: regular rate Rhythm: regular rhythm Heart sounds: S1 normal heart sound present and S2 normal heart sound present GI Palpation (GI): Soft to palpation and nontender Auscultation: normal bowel sounds Skin General skin exam: rashes and/or lesions noted Assessment & Plan Assessment & Plan (1) Pre-op chest exam: Comment: The patient does have high risk for perioperative pulmonary complications which include: laryngopasms, seizures, asthma exacerbation, atelectasis, hypoxia, pneumonia, prolonged mechanical ventilation and . She is stable at this time from a respiratory standpoint and I do recommend elective surgery at this point. Code(s): Z01.811 - Encounter for preprocedural respiratory examination (2) Asthma: Comment: s/p Thermoplasty Code(s): J45.909 - Unspecified asthma, uncomplicated Qualifiers: Asthma complication type: with acute exacerbation Asthma persistence: persistent Asthma severity: severe Qualified Code(s): J45.51 - Severe pe rsistent asthma with (acute) exacerbation (3) Chronic allergic rhinitis: Code(s): J30.9 - Allergic rhinitis, unspecified (4) Asthma-COPD overlap syndrome: Code(s): J44.9 - Chronic obstructive pulmonary disease, unspecified Plan Although the patient does have severe asthma clinically she is doing a lot better on the current regimen. I do believe that she is able to move foward with her orthopedic surgery and anesthesia. She does tolerate general anesthesia in the past. I would recommend pre and post bronchodilator therapy to minimize bronchospasms during and after surgery. She at her best at this time for surgery. This is a very good window for her to have surgery. REC: Proceed with surgery with anesthesia continue Breztri BID continue Xopenex to minimize tachycardia continue nebulized therapy as needed continue Daliresp Epi pen as needed off prednisone at this time continue Tezspire (monitor musculoskeletal adverse effects) Follow-up in 8-12 weeks Coding Level of Care Code Est Pt Level 4 (80732) Diagnoses Pre-op chest exam Z01.811 Severe persistent asthma with acute exacerbation J45.51 Asthma complication type: with acute exacerbation Asthma persistence: persistent Asthma severity: severe Chronic allergic rhinitis J30.9 Asthma-COPD overlap syndrome J44.9 Time Spent (min) 16
== END 2023-05-06 14:05 | disposition home or self-care (01) ==
PROVIDERS: PCP Internal Medicine; Visit Provider Hospitalist
DX: Z01.811 Encounter for preprocedural respiratory examination (principal); J45.51 Severe persistent asthma with (acute) exacerbation; J30.9 Allergic rhinitis, unspecified; J44.9 Chronic obstructive pulmonary disease, unspecified
CPT/HCPCS: 99214

== ENCOUNTER → 2023-05-06 13:51 | Outpatient (BNVA) | payer OTHER, SELFPAY | PROVIDERS: PCP Internal Medicine; Visit Provider Hospitalist | DX: Z01.811 Encounter for preprocedural respiratory examination (principal); J45.51 Severe persistent asthma with (acute) exacerbation; J44.9 Chronic obstructive pulmonary disease, unspecified; J30.9 Allergic rhinitis, unspecified | CPT/HCPCS: 99212 ==

== ENCOUNTER 2023-06-13 08:19 | Outpatient (REF) | payer OTHER, SELFPAY | END 2023-06-13 08:20 | disposition home or self-care (01) | LOC: HO.MDS 08:19 | PROVIDERS: Visit Provider Hospitalist | DX: J45.50 Severe persistent asthma, uncomplicated (principal) | CPT/HCPCS: 96372; J2356 ==

== ENCOUNTER 2023-08-08 09:23 | Outpatient (AMB) | payer OTHER, SELFPAY ==
[2023-08-08 09:31] VITALS: BP 132/82; PULSE 98; O2SAT 99; BMI 36.1
--- NOTE | 2023-08-08 09:31 | MHC.OFFVIS ---
Intake Vital Signs 08/08/23 09:31 Height 5 ft 1 in Weight 191 lb BMI 36.1 BP 132/82 Blood Pressure Location Rt brachial Position Sitting Pulse 98 Pulse Source Doppler Pulse Oximetry (%) 99 Oxygen Delivery Method Room Air Intake Visit Reasons: COPD Allergies tramadol [TRAMADOL] Allergy (Severe, Verified 08/08/23 09:35) THROAT SWELLING HPI HPI Comments History of Present Illness Details The patient is a 47-year-old woman with a known history of severe persistent asthma s/p tracheobronplasty. 05/06/2023 the patient is here for a pulmonary follow-up visit. This is a preoperative evaluation. The patient does have severe persistent asthma. She recently started a new biologic regimen which appears to be effective for. During the last visit in March she did require antibiotics and prednisone. Clinically she is doing significantly better now on the biologics. The patient has been using her maintenance therapy and also her rescue medicine as needed. However, has not required any additional antibiotics or prednisone. She continues the tezspire every 4 weeks. Unfortunately, a 7 did the she is having significant knee pain. She did follow-up with orthopedic surgery and there was no other option but surgery. Therefore, she is here for preoperative evaluation. Clinically she is doing a lot better without any significant wheezing on examination. She is also with good adherence with respiratory therapy. I do not see any reason for her not to have surgery at this time as this is a very good window of opportunity for her to undergo her surgery. She has tolerated general anesthesia in the past. Post procedure and anesthesia she has had issue with vocal cord dysfunction therefore needs to be monitor. She is also has history significant bronchospasms after surgery. Therefore, she should also be provided with post bronchodilator therapy. I foresee that she will do well even with her significant asthma. Specially, since she is on a better regimen of medications at this time and seems to be controlling her asthma very well. 08/08/2023 the patient is here for pulmonary follow-up visit. since we last spoke she did undergo her knee surgery. After anesthesia she would not wake up and she likely had a prolonged period of intubation. The patient is high risk because of her asthma and was provided to her surgeons. But, she did well and she was able to be discharged home. Ultimately after that the patient was evaluated at [facility] and she was kept for is significant asthma exacerbation. They wanted to evaluate her airway by performing a bronchoscopy after pneumo plasty specially since it was not helping. But, she wants to do it locally. I explained to her that she is probably better off doing a Juan A but she is reluctant to do so in agreeable to do the bronchoscopy locally for her. The patient also has not been coming in for her biologic injections, Tezspire. She states initially was because she which is status post a new surgery then after that multiple admissions to [facility]. On further questioning though the patient states that she really did not see any significant improvement while on the biologic therapy. I do not think she gave enough time to see. But at this point which is discontinue the medication we can also reassess in the future depending on her bronchoscopy. She will continue with the current respiratory therapy although will switch her to nebulized therapy at this time. [facility] Medical History (Updated 05/06/23 @ 14:00 by Haresh Rico MD) Tachycardia Asthma-COPD overlap syndrome KEITH (obstructive sleep apnea) Chronic allergic rhinitis COVID-19 Nasal airway abnormality Bunion Dysphagia Asthma Family History Paternal Grandfather Cancer Other Asthma Social History Household Members: Spouse Alcohol intake: current Alcohol intake frequency: holidays/special occasions only Alcohol type: wine Patient Tobacco Use Status: Never used Tobacco Current occupational status: retired Review of Systems Const Denies chills, Denies fever(s), Denies headache(s), Denies night sweats and Reports weight loss ENT Denies change in voice, Denies headache(s), Denies lip swelling, Denies mouth pain, Reports nasal congestion, Reports nasal discharge and Denies tongue swelling Card Denies chest pain and Reports dyspnea on exertion Resp Denies change in phlegm color, Denies chest congestion, Reports cough, Denies hemoptysis, Reports dyspnea on exertion and Reports wheezing GI Denies abdominal pain Musc Reports as per HPI, Reports abnormal gait, Reports myalgias, Reports arthralgias and Reports limited range of motion Neuro Denies Neuro-related abnormal movements, Reports abnormal gait and Denies headache(s) Psych Denies no additional complaints Oleksandr/Lymph Denies easy bleeding and Denies lymphadenopathy Aller/Immun Denies lip swelling, Denies tongue swelling and Reports wheezing Physical Exam Vital Signs: Last Vital Signs Pulse 98 08/08/23 09:31 BP 132/82 08/08/23 09:31 Pulse Ox 99 08/08/23 09:31 Oxygen Delivery Method Room Air 08/08/23 09:31 BMI result Body Mass Index 36.1 Const General: alert Neck Neck: Yes normal visual inspection, Yes full ROM and Yes no lymphadenopathy Chest Chest palpation & inspection: normal inspection of the chest Resp Effort & Inspection: normal respiratory effort Auscultation: wheezes and diminished lung sounds Cardio Rate: regular rate Rhythm: regular rhythm Heart sounds: S1 normal heart sound present and S2 normal heart sound present GI Palpation (GI): Soft to palpation and nontender Auscultation: normal bowel sounds Skin General skin exam: rashes and/or lesions noted Assessment & Plan Assessment & Plan (1) Asthma: Comment: s/p Thermoplasty Code(s): J45.909 - Unspecified asthma, uncomplicated Qualifiers: Asthma complication type: with acute exacerbation Asthma persistence: persistent Asthma severity: severe Qualified Code(s): J45.51 - Severe persistent asthma with (acute) exacerbation (2) Chronic allergic rhinitis: Code(s): J30.9 - Allergic rhinitis, unspecified (3) Asthma-COPD overlap syndrome: Code(s): J44.9 - Chronic obstructive pulmonary disease, unspecified Plan stop Breztri BID start Budesonide BID start Brovana BID start Spiriva daily continue Xopenex to minimize tachycardia continue nebulized therapy as needed continue Daliresp Epi pen as needed cough medicine CXR stop Tezspire (monitor musculoskeletal adverse effects) plan for bronchoscopy to evaluate on going asthma port thermoplasty overnight oximetry Follow-up after the bronchoscopy Orders: Orders Overnight Pulse Oximetry 08/08/23 J45.909 - Unspecified asthma, uncomplicated Medications: New arformoterol (Brovana) 2 mL inhalation Q12H 30 days 120 mL 11RF J44.9 - Chronic obstructive pulmonary disease, unspecified tiotropium bromide 2.5 mcg/actuation (Spiriva Respimat) 2 puffs inhalation DAILY 30 days 1 ea 11RF Changed From budesonide inhalation To budesonide 0.5 mg (2 mL) inhalation BID 30 days 120 mL 11RF Refilled codeine-guaifenesin 10-100 mg/5 mL 10 mL PO Q6H 10 days PRN 300 mL 0RF cough levalbuterol tartrate 45 mcg/actuation (Xopenex HFA) 2 puffs inhalation Q6H 30 days PRN 15 grams 11RF shortness of breath or wheezing J45.909 - Unspecified asthma, uncomplicated Coding Level of Care Code Est Pt Level 4 (17247) Diagnoses Severe persistent asthma with acute exacerbation J45.51 Asthma complication type: with acute exacerbation Asthma persistence: persistent Asthma severity: severe Chronic allergic rhinitis J30.9 Asthma-COPD overlap syndrome J44.9 Time Spent (min) 19
== END 2023-08-08 09:52 | disposition home or self-care (01) ==
PROVIDERS: PCP Internal Medicine; Visit Provider Hospitalist
DX: J45.51 Severe persistent asthma with (acute) exacerbation (principal); J30.9 Allergic rhinitis, unspecified; J44.9 Chronic obstructive pulmonary disease, unspecified
CPT/HCPCS: 99214

== ENCOUNTER → 2023-08-08 09:23 | Outpatient (BNVA) | payer OTHER, SELFPAY | PROVIDERS: PCP Internal Medicine; Visit Provider Hospitalist | DX: J45.51 Severe persistent asthma with (acute) exacerbation (principal); J30.9 Allergic rhinitis, unspecified; J44.9 Chronic obstructive pulmonary disease, unspecified | CPT/HCPCS: 99212 ==

== ENCOUNTER → 2023-09-11 06:23 | Outpatient (BNV) | payer OTHER, SELFPAY | PROVIDERS: PCP Internal Medicine; Visit Provider Hospitalist | DX: J45.909 Unspecified asthma, uncomplicated (principal) | CPT/HCPCS: 31623; 31645 ==

== ENCOUNTER 2023-09-11 09:35 | Inpatient (IN) | payer OTHER, SELFPAY ==
[2023-09-08 13:46] VITALS: BMI 36.1
--- NOTE | 2023-09-09 13:50 | HO.ANESPROP2 ---
Documented by User: Kiki Lovelace NP 09/09/23 13:52 HPI - Anesthesia Eval Consult details Narrative: 48yo F for Bronchoscopy Fiberoptic PMFSH Active Problems Active Problems: All Active Problems Pre-op evaluation (Acute) COVID-19 (Acute) Dysphagia (Acute) Sinusitis (Acute) Viral syndrome (Acute) Chest pain (Acute) Pre-op chest exam (Acute) Tachycardia (Acute) Asthma-COPD overlap syndrome (Acute) KEITH (obstructive sleep apnea) (Acute) Chronic allergic rhinitis (Acute) COVID-19 (Acute) Nasal airway abnormality (Acute) Dysphagia (Acute) Asthma (Acute) Past Medical History Medical History Tachycardia Asthma-COPD overlap syndrome KEITH (obstructive sleep apnea) Chronic allergic rhinitis COVID-19 Nasal airway abnormality Dysphagia Asthma Family History Family History Paternal Grandfather Cancer Other Asthma Surgical History Surgical History (Updated 09/11/23 @ 06:44 by Frnaca Sol RN) Hx of hysterectomy History of lung surgery History of total left knee replacement History of bunionectomy History of bronchoscopy Social History Social History Household Members: Spouse Alcohol intake: current Alcohol intake frequency: holidays/special occasions only Alcohol type: wine Patient Tobacco Use Status: Never used Tobacco Use of substances other than those prescribed or required for medical reasons: No Have you been hit, kicked, punched, or otherwise hurt by someone within the past year? If so, by whom?: No Are you DNR?: No Advance Directives: No Advance Directives Information Provided: Yes Advance Directives on File: No Eating poorly because of decreased appetite: No Current occupational status: retired Meds Allergies Allergy/AdvReac Type Severity Reaction Status Date / Time tramadol [TRAMADOL] Allergy Severe THROAT Verified 09/11/23 06:44 SWELLING Home Medications ?Medication ?Instructions ?Recorded ?Confirmed ?Last Taken ?Type levetiracetam 1,000 mg tablet 1,000 mg PO BID 09/11/20 09/08/23 Unknown History (Keppra) meloxicam 7.5 mg tablet 7.5 mg PO DAILY 03/05/21 Unknown History acetaminophen 500 mg tablet 1,000 mg PO TID 09/23/22 09/08/23 09/11/23 History cholecalciferol (vitamin D3) 50 50 mcg PO DAILY 09/23/22 09/08/23 Unknown History mcg (2,000 unit) tablet melatonin 3 mg tablet 3 - 6 mg PO BEDTIME PRN insomnia 09/23/22 09/08/23 Unknown History clonidine HCl 0.1 mg tablet 0.1 mg PO BEDTIME 03/06/23 09/08/23 Unknown History guaifenesin 100 mg/5 mL oral liquid 200 mg PO Q4H PRN 03/06/23 Unknown History nebulizers 03/06/23 Unknown History oxcarbazepine 300 mg tablet 150 mg PO DAILY 03/06/23 09/08/23 Unknown History sertraline 50 mg tablet 50 mg PO DAILY 03/06/23 09/08/23 Unknown History Exam Height,Weight and Vital Signs: Height 5 ft 1 in Weight 86.636 kg Assessment and Plan Assessment Anesthesia Assessment: Chart Reviewed Documented by User: Tino Morales MD 09/11/23 07:19 [facility] Past Medical History Medical History Tachycardia Asthma-COPD overlap syndrome KEITH (obstructive sleep apnea) Chronic allergic rhinitis COVID-19 Nasal airway abnormality Dysphagia Asthma Family History Family History Paternal Grandfather Cancer Other Asthma Family history of problems with anesthesia: No Surgical History Surgical History (Updated 09/11/23 @ 06:44 by Franca Sol RN) Hx of hysterectomy History of lung surgery History of total left knee replacement History of bunionectomy History of bronchoscopy History of Problems with Anesthesia: No Social History Social History Household Members: Spouse Alcohol intake: current Alcohol intake frequency: holidays/special occasions only Alcohol type: wine Patient Tobacco Use Status: Never used Tobacco Use of substances other than those prescribed or required for medical reasons: No Have you been hit, kicked, punched, or otherwise hurt by someone within the past year? If so, by whom?: No Are you DNR?: No Advance Directives: No Advance Directives Information Provided: Yes Advance Directives on File: No Eating poorly because of decreased appetite: No Current occupational status: retired Meds Allergies Allergy/AdvReac Type Severity Reaction Status Date / Time tramadol [TRAMADOL] Allergy Severe THROAT Verified 09/11/23 06:44 SWELLING Home Medications ?Medication ?Instructions ?Recorded ?Confirmed ?Last Taken ?Type levetiracetam 1,000 mg tablet 1,000 mg PO BID 09/11/20 09/08/23 Unknown History (Keppra) meloxicam 7.5 mg tablet 7.5 mg PO DAILY 03/05/21 Unknown History acetaminophen 500 mg tablet 1,000 mg PO TID 09/23/22 09/08/23 09/11/23 History cholecalciferol (vitamin D3) 50 50 mcg PO DAILY 09/23/22 09/08/23 Unknown History mcg (2,000 unit) tablet melatonin 3 mg tablet 3 - 6 mg PO BEDTIME PRN insomnia 09/23/22 09/08/23 Unknown History clonidine HCl 0.1 mg tablet 0.1 mg PO BEDTIME 03/06/23 09/08/23 Unknown History guaifenesin 100 mg/5 mL oral liquid 200 mg PO Q4H PRN 03/06/23 Unknown History nebulizers 03/06/23 Unknown History oxcarbazepine 300 mg tablet 150 mg PO DAILY 03/06/23 09/08/23 Unknown History sertraline 50 mg tablet 50 mg PO DAILY 03/06/23 09/08/23 Unknown History Exam Airway Mallampati Class: II TM Dist: >3cm Neck ROM: Full Loose/Missing/Broken Teeth: No Heart: rrr Lungs: cta b/l Assessment and Plan Assessment Anesthesia Assessment: Anesthesia Plan Discussed Final Anesthetic Review Family History of Problems with Anesthesia: No History of Problems with Anesthesia: No NPO: Yes ASA Class: III Final Preanesthetic Review: No Changes in Pt Med Stat, Meds/Allgs Chart Reviewed, Consent Obtained/Reviewed and Anes Risks/Benef Reviewed Patient Risk: Intermediate Procedure Risk: Intermediate Anesthetic Plan Anesthetic Plan: GA Disposition: Standard PACU
[2023-09-11] VITALS (31 sets, daily range): BP systolic 102–175; BP diastolic 61–121; PULSE 67–108; RESP 12–22; TEMP 24.5–37; O2SAT 91–99
--- NOTE | ~2023-09-11 | XR_ITS ---
EXAMINATION: XR CHEST CLINICAL INFORMATION: Tubes placement COMPARISON: None available. TECHNIQUE: Frontal view of the chest was obtained. FINDINGS: There is endotracheal tube identified approximately 4.6 cm above the nasir. No other tubes are seen. Lungs of low volume without infiltrates nodules or pneumothorax. There is no pleural effusion. Cardiomediastinal silhouette is normal. XR/XR chest 1V IMPRESSION: Well-positioned endotracheal chest
--- NOTE | ~2023-09-11 | CT_ITS ---
EXAMINATION: CT HEAD WITHOUT CONTRAST (STROKE PROTOCOL) CLINICAL INFORMATION: Stroke protocol. Left facial droop. Left lower extremity weakness. COMPARISON: None available. TECHNIQUE: Contiguous axial imaging was performed from the skull base to vertex without intravenous administration of contrast. This CT examination was performed using dose optimization techniques as appropriate, variously including the following: *Automated exposure control *Adjustment of mA and/or kV according to patient size (this includes techniques or standardized protocols for targeted exams where dose is matched to indication/reason for exam; i.e. extremities or head) *Use of iterative reconstruction technique DLP: 857 mGy-cm FINDINGS: There is no evidence for an extra-axial collection. There is no evidence for intra or extra-axial hemorrhage. The ventricles and extra-axial CSF spaces are appropriate. Manley-white matter differentiation is normal. No old exams are available for comparison and it is difficult to exclude a small right basal ganglia or internal capsule infarct for example axial image 39 series 4 and coronal reconstructed image 44 and sagittal reconstructed image 41. Again no old exams are available for comparison and this is indeterminate in age. No mass or mass effect is seen. Review of bone windows is normal. Visualized paranasal sinuses, mastoid air cells and middle ears are clear. CT/CT head for stroke IMPRESSION: It is difficult to exclude a right basal ganglia or internal capsule small lacunar infarct. No old exams are available for comparison and this is indeterminate in age. This could be better evaluated with brain MRI if clinically indicated. This critical result was discussed with Dr. Velazquez at 1058 hours on 09/12/2023. It was ascertained that the content and urgency of the report was understood at the time of direct communication.
--- NOTE | ~2023-09-11 | CT_ITS ---
EXAMINATION: CTA head and neck stroke CLINICAL INFORMATION: Left facial droop, left lower extremity weakness COMPARISON: None available. TECHNIQUE: Test bolus sequences followed by intravenous administration of 70 mL of Omnipaque 350 contrast. Helical imaging was performed in the axial plane from the skull vertex to the thoracic inlet. Delayed postcontrast imaging of the head was also performed. The data was processed at the geospatial technologist workstation for generation of MIP sequences. Angled MIPs and volume rendered reformatted images were also generated at an offline 3D workstation. Stenoses are assessed in accordance with NASCET criteria unless otherwise indicated. This CT examination was performed using dose optimization techniques as appropriate, variously including the following: *Automated exposure control *Adjustment of mA and/or kV according to patient size (this includes techniques or standardized protocols for targeted exams where dose is matched to indication/reason for exam; i.e. extremities or head) *Use of iterative reconstruction technique DLP: 1591 mGy-cm FINDINGS: CTA NECK: Suggestion of common origin of the innominate and left common carotid artery, normal variant. The visualized segments of the innominate and bilateral subclavian arteries are patent. The origin and proximal segment of the left common carotid artery is obscured by contrast bolus artifact. The origin of the right common carotid arteries patent. The cervical segments of the common carotid arteries as well as the common carotid artery bifurcations are patent. The cervical segments of the internal carotid arteries are also patent bilaterally. The origin and proximal segment of the left vertebral artery are obscured by streak artifacts. The origin of the right vertebral arteries patent. The remaining segments of the cervical vertebral arteries are patent bilaterally. No evidence of hemodynamically significant stenosis, dissection, or aneurysm. The visualized branches of the external carotid arteries are unremarkable. CTA HEAD: Anterior circulation: The petrous, cavernous, supraclinoid segments of the internal carotid arteries are patent bilaterally. The major branches of the anterior and middle cerebral arteries as well as the anterior communicating artery complex are patent. No large vessel occlusion, saccular aneurysm, or dissection. Posterior circulation: The intracranial vertebral arteries are patent bilaterally. The basilar artery is mildly tortuous in course however remains normal in caliber. The posterior cerebral and superior cerebellar arteries arise normally from the basilar summit. No aneurysm. On delayed imaging, the venous structures demonstrate normal contrast opacification. No filling defect. No abnormal intraparenchymal enhancement. Soft tissues: No suspicious neck mass or cervical adenopathy. Lungs: Clear. Bones: No acute osseous abnormality. No lytic or blastic osseous lesions. Multilevel degenerative changes of the visualized spine. CT/CT angio head neck stroke IMPRESSION: CTA head demonstrates no large vessel occlusion, saccular aneurysm, or dissection. CTA neck demonstrates no hemodynamically significant stenosis, dissection, or aneurysm.
--- NOTE | ~2023-09-11 | MR_ITS ---
EXAMINATION: MR BRAIN WITHOUT CONTRAST CLINICAL INFORMATION: Stroke. COMPARISON: CTA head and neck from 09/12/2023. TECHNIQUE: MRI of the brain was obtained using routine sequences without contrast. FINDINGS: Mildly motion degraded exam. No focal restricted diffusion is demonstrated to suggest acute or subacute cerebral ischemia. No evidence of acute or chronic hemorrhagic products on heme-sensitive imaging. Few nonspecific scattered periventricular and deep white matter T2 FLAIR hyperintensities. No additional parenchymal signal abnormalities. The ventricles are normal in morphology and size. No abnormal mass effect. No midline shift. The sella turcica is mildly expanded with partial flattening of the pituitary gland. Normal positioning of the cerebellar tonsils. Normal arterial and venous vascular flow voids are present. Normal, homogeneous marrow signal. Mild mucosal thickening of the paranasal sinuses. No signal abnormalities within the mastoids. MR/MR head/brain wo con IMPRESSION: 1. No acute intracranial abnormalities. 2. Minimal nonspecific white matter changes.
[2023-09-11] MEDS: Lactated Ringers 1,000 ML 100 ML IVCONT (07:00)
--- NOTE | 2023-09-11 08:01 | MHC.SHP ---
Pre-Procedural Eval Section A - 24 Hr Update-Section A only Date of Service: 09/11/23 The patient is an INPATIENT: No Changes since office visit: No Cold of Flu in the past 2 weeks, No New Medical Problems, No Changes in Medication and No Patient answered all questions The patient has been examined within 24 hours of the surgical procedure. The History & Physical has been completed within 30 days and I have reviewed it.: Yes Section B - Complete if H&P > 30 days Chief Complaint: Chronic obstructive pulmonary disease, unspecified Details of Present Illness: The patient has asthma s/p bromvhopplasty. Still having wheezing and coughing. We will re-evaluate her airways Relevant Family History (Specify if Yes): No Relevant Social History: None Present Medications: see Short Stay Collaborative assessment Medical History: Significant History History of Previous Operations: Relevant previous surgery/procedure and date(s) Allergies: Allergies Allergy/AdvReac Type Severity Reaction Status Date / Time tramadol [TRAMADOL] Allergy Severe THROAT Verified 09/11/23 06:44 SWELLING Review of Systems Sugical H&P ROS: Negative: Constitution, Cardiovascular, Neurological, Psychiatric, Hem-Onc, Allergic/Immunologic, Gastrointestinal, Genitourinary and Musculoskeletal and Yes, Specify: Respiratory (cough) Exam Surgical H&P Exam: Normal: HEENT, Normal: Heart, Normal: Lungs, Normal: Extremities, Normal: Abdomen, Normal: Skin and Normal: Neurological Plan Diagnosis/Plan: Unchanged (planned bronchoscopy) I have reviewed the history and physical and performed a pertinent physical examination on my patient. No changes have occurred unless specified. Time Spent With Patient Time: Total time managing care of this patient today ____ minutes.
--- NOTE | 2023-09-11 09:02 | PM.OP ---
Brief Operative Note Date of Service: 09/11/23 Pre-op diagnosis: asthma Post-op diagnosis: other (asthma, bronchitis, mucus plugging with debri) Implants: Surgeon: Haresh Rico MD Anesthesia: GETA Was an Grey Stock Recorder used for this Procedure?: No Estimated blood loss (mL): 0 Pathology: none sent Condition: stable Disposition: same day Complications (if any): The patient needed to be reintubated while she wakes up from the anesthesia
--- NOTE | 2023-09-11 09:11 | PM.EVENT ---
Event Note Date of Service: 09/11/23 Event Note: Texted to see patient in PACU. Patient is s/p bronchoscopy. Sitting up in bed with eyes closed. Breathing very stridorous. Has already received albuterol and presently receiving duoneb treatment. Sats in high 90s. BP 180s/120s. HR 110s. O/E: Stridor over trachea + inspiratory and expiratory wheezes. Racemic epinephrine ordered and started but patient's breathing becoming more labored and patient stating unable to breathe. Of note, patient has a history of needing post-op intubation in PACU following procedure. Decision made to intubate patient. Easy intubation following propofol and succinylcholine. See LOGISTICS MANAGEMENT SPECIALIST note. Respiratory therapy called. Patient placed on vent. Sedated with propofol. Discussed with Ship Pilot and Dr Rico. For transfer to ICU. Time Spent With Patient Time: Total time managing care of this patient today ____ minutes.
--- NOTE | 2023-09-11 09:42 | PC.RT ---
PACU called respiratory to assist with an intubation due to the decompensation of a patient, post extubation from a bronchoscopy. PACU stated that the patient was beginning to feel SOB and became stridorous. To lessen the stridor, the MD gave the patient an albuterol treatment, which was a sure fire way to help nothing with the patients' upper airway. The MD proceeded to intubate, with 80% of the supplies, not available or within reach, whatsoever. Blatantly ignored the importance of a stylet, colorimetric device and tube tamer. I placed the patient on a parapac transport ventilator to ease the transport to the ICU. Two doctors okayed the parapac, volumes were great, all vital signs were stable and we were told they would call when they were ready to transport. The PACU bagged the patient to the ICU because they wanted a real ventilator .
[2023-09-11] MEDS: dexmedeTOMIDidine HCL/NS 400 MCG/100 ML INFUS..BTL 21.66 MCG IVCONT (09:45)
[2023-09-11] MEDS: propofoL 1,000 MG/100 ML VIAL 15.59 MG IVCONT (09:45)
[2023-09-11] MEDS: Albuterol/Iprat 2.5/0.5MG 3 ML AMPUL.NEB INHALE ×4 (10:12→22:32)
--- NOTE | 2023-09-11 10:14 | P.HPCC_ITS ---
History of Present Illness Date of Service: 09/11/23 Attending physician on admission: Clarita Velazquez Chief Complaint: Stridor/Wheezing Post-Bronchoscopy Patient is a 48 Y F with prior vocal cord dysfunction and bronchospasm post- operatively, as well as obstructive sleep apnea, severe asthma, followed by Juan A and Dr. Rico, previously on biologics and status post thermoplasty and necessitated follow-up bronchoscopy on 09/09; patient reportedly tolerated bronchoscopy well, though reportedly developed stridor and wheezing, was re- intubated in PACU Review of Systems Review of Systems: Yes unobtainable due to endotracheal tube PMFSH Past Medical History Medical History Tachycardia Asthma-COPD overlap syndrome KEITH (obstructive sleep apnea) Chronic allergic rhinitis COVID-19 Nasal airway abnormality Dysphagia Asthma Family History Family History Paternal Grandfather Cancer Other Asthma Surgical History Surgical History Hx of hysterectomy History of lung surgery History of total left knee replacement History of bunionectomy History of bronchoscopy Social History Social History Household Members: Spouse Alcohol intake: current Alcohol intake frequency: holidays/special occasions only Alcohol type: wine Patient Tobacco Use Status: Never used Tobacco Use of substances other than those prescribed or required for medical reasons: No Currently Displaying Signs/Symptoms of Drug Intoxication Withdrawal: No Have you been hit, kicked, punched, or otherwise hurt by someone within the past year? If so, by whom?: No Are you DNR?: No Advance Directives: No Advance Directives Information Provided: Yes Advance Directives on File: No Eating poorly because of decreased appetite: No Current occupational status: retired Meds Allergies Allergy/AdvReac Type Severity Reaction Status Date / Time tramadol [TRAMADOL] Allergy Severe THROAT Verified 09/11/23 06:44 SWELLING Active Medications: Current Medications Albuterol/Ipratropium (Albuterol/Iprat 2.5/0.5mg 3 Ml Ampul.Neb) 3 ml INHALE Q4H LAURE Last Admin: 09/11/23 10:12 Dose: 3 ml Chlorhexidine Gluconate (Chlorhexidine Gluc Oral Rinse 15 Ml Mouthwash) 15 ml BUCCAL Q8H LAURE Dexamethasone (Dexamethasone 2 Mg Tablet) 10 mg PO Q6H LAURE Stop: 09/12/23 15:46 Heparin Sodium (Porcine) (Heparin Sodium,Porcine 5,000 Unit/Ml Vial) 5,000 unit SUBCUT Q8H LAURE Lactated Ringer's (Lr) 1,000 mls @ 100 mls/hr IVCONT .Q10H LAURE Last Admin: 09/11/23 07:00 Dose: 100 mls/hr Pantoprazole Sodium 40 mg/ (Sodium Chloride) 110 mls @ 400 mls/hr IV DAILY@0630 LAURE Dexmedetomidine HCl (Precedex) 400 mcg in 100 mls @ 0 mls/hr IVCONT .Q0M LAURE; Protocol Last Titration: 09/11/23 10:00 Dose: 1.2 mcg/kg/hr, 25.99 mls/hr Propofol (Diprivan) 1,000 mg in 100 mls @ 0 mls/hr IVCONT .Q0M LAURE; Protocol Last Titration: 09/11/23 10:12 Dose: 50 mcg/kg/min, 25.99 mls/hr Home Medications ?Medication ?Instructions ?Recorded ?Confirmed ?Last Taken ?Type levetiracetam 1,000 mg tablet 1,000 mg PO BID 09/11/20 09/08/23 Unknown History (Magdalena) meloxicam 7.5 mg tablet 7.5 mg PO DAILY 03/05/21 Unknown History acetaminophen 500 mg tablet 1,000 mg PO TID 09/23/22 09/08/23 09/11/23 History cholecalciferol (vitamin D3) 50 50 mcg PO DAILY 09/23/22 09/08/23 Unknown History mcg (2,000 unit) tablet melatonin 3 mg tablet 3 - 6 mg PO BEDTIME PRN insomnia 09/23/22 09/08/23 Unknown History clonidine HCl 0.1 mg tablet 0.1 mg PO BEDTIME 03/06/23 09/08/23 09/11/23 History guaifenesin 100 mg/5 mL oral liquid 200 mg PO Q4H PRN 03/06/23 Unknown History nebulizers 03/06/23 Unknown History oxcarbazepine 300 mg tablet 150 mg PO DAILY 03/06/23 09/08/23 Unknown History sertraline 50 mg tablet 50 mg PO DAILY 03/06/23 09/08/23 Unknown History Physical Exam Vital Signs: Vital Signs: Last Vital Signs Temp 97 F 09/11/23 09:25 Pulse 92 09/11/23 10:14 Resp 18 09/11/23 10:14 BP 109/63 09/11/23 09:25 Pulse Ox 98 09/11/23 09:35 O2 Del Method Mechanical Ventil ation 09/11/23 09:35 O2 Flow Rate 6 09/11/23 08:55 FiO2 30 09/11/23 09:59 BMI result Body Mass Index 36.1 Const: Other: intubated, sedated General: healthy appearing and no acute distress HEENT: Head: Yes normal to inspection, Yes normocephalic and Yes atraumatic Eyes: General: appearance normal, both eyes and all related structures Neck: Neck: Yes normal visual inspection, Yes full ROM and Yes supple Chest: Chest palpation & inspection: normal inspection of the chest Resp: Other: no appreciable rales, rhonchi, wheezing Cardio: Rate: regular rate Rhythm: regular rhythm GI: Inspection: Yes normal to inspection, No Abdominal wall edema and No distended Palpation (GI): Soft to palpation, not firm, nontender, no guarding and not rigid : External Female Exam: normal external appearance Skin: General skin exam: no rashes or lesions noted Neuro: General: tone normal, moves all extremities and no focal motor deficits Extrem: General: Yes normal to inspection, Yes capillary refill normal and Yes no clubbing, cyanosis or edema Psych: Other: unable to assess Assessment and Plan (1) KEITH (obstructive sleep apnea): Status: Acute (2) Asthma: Qualifiers: Asthma severity: severe Asthma persistence: persistent Asthma complication type: with acute exacerbation Qualified Code(s): J45.51 - Severe persistent asthma with (acute) exacerbation Status: Acute (3) Vocal cord dysfunction: Status: Acute (4) Dysphagia: Qualifiers: Dysphagia type: other dysphagia Qualified Code(s): R13.19 - Other dysphagia Status: Acute Plan Patient is a 48 Y F with prior vocal cord dysfunction and bronchospasm post- operatively, as well as obstructive sleep apnea, severe asthma, followed by Juan A and Dr. Rico, previously on biologics and status post thermoplasty and necessitated follow-up bronchoscopy on 09/09; patient reportedly tolerated bronchoscopy well, though reportedly developed stridor and wheezing, was re- intubated in PAC N: intubated, sedated w/ propofol, fentanyl, and dexmedetomidine gtts; to wean as tolerated CV: no acute issues R: severe asthma, s/p thermoplasty; reportedly devleoped stridor/wheezing in PACU, likely component of vocal cord dysfunction; duonebs, steroids; appreciate pulmonology recommendations GI: no acute issues; NPO : no acute issues H: no acute issues ID: no acute issues E: no acute issues
[2023-09-11] MEDS: Midazolam HCl/PF 2 MG/2 ML VIAL IVPUSH (10:27)
[2023-09-11 10:34] LABS: ABG Base Excess 6.6 mmol/L; ABG HCO3 31 mmol/L (22-26); ABG pCO2 46 mmHg (32-45); ABG pH 7.44 (7.35-7.45); ABG pO2 117 mmHg (83-108)
--- NOTE | 2023-09-11 10:36 | OP_ITS ---
DATE OF SERVICE: 09/11/2023 SURGEON: Haresh Rico MD PREOPERATIVE DIAGNOSIS: Asthma, uncontrolled. POSTOPERATIVE DIAGNOSIS: PROCEDURE PERFORMED: Bronchoscopy with washings, therapeutic cleaning, and brushings. ESTIMATED BLOOD LOSS: COMPLICATIONS: None. ANESTHESIA: General endotracheal anesthesia with 8.[address] The consent was obtained from the patient. Patient understands the risks and the benefits of the procedure. ASSISTANTS: SPECIMENS: Bronchial washings and brushings sent through microbiology and cytology. ASA CLASSIFICATION: 4. POSTOPERATIVE DIAGNOSES: Asthma, bronchitis, mucous plugging with debris. DESCRIPTION OF PROCEDURE: After the patient was adequately sedated and intubated, the flexible digital bronchoscope was inserted via the ET tube to the level of the distal trachea. The tracheal mucosa appeared normal. The patient did have significant amount of mucoid debris with black pigmentation throughout causing significant blockage of the airways. This was extensive in amount. The bronchoscope was navigated to the right lower lobe where microscopic brush was introduced into that debris. This sent for appropriate specimens. Subsequently after that, the bronchoscope was navigated to the entire tracheobronchial tree up to the subsegmental level. The saline was used for therapeutic clearing of all the mucoid debris, please refer to the pictures. Some of that was sticky, difficult to clear. At one point, I did have to come out to be able to clear the suction port. Therapeutic cleaning was provided throughout the airways. The specimens were sent for cytology and also microbiology. After removal of the mucoid secretions, the patient did have some areas of erosion of the mucosa. Otherwise no endobronchial lesions or masses appreciated. The bronchoscope was then removed. The total endoscopic time approximately 8 minutes. Patient tolerated the procedure well during the procedure. She was extubated, although the patient does take longer to come out of anesthesia. She also developed some stridor and given racemic epi. She did not improve and she was re-intubated. Haresh Rico MD MR/KIM / [id number] MTDD
[2023-09-11] MEDS: fentaNYL citrate/NS 1,000 MCG/100 ML PLAST..BAG 2.5 MCG IVCONT (10:45)
[2023-09-11] MEDS: Pantoprazole Sodium 40 MG in 0.9 % Sodium Chloride 100 ML 400 MG IV (11:05)
[2023-09-11] MEDS: dexAMETHasone sod phosphate 10 MG/ML VIAL IVPUSH ×3 (11:06→22:11)
[2023-09-11] MEDS: Chlorhexidine Gluc Oral Rinse 15 ML MOUTHWASH BUCCAL ×3 (11:06→21:20)
[2023-09-11] MEDS: Heparin Sodium,Porcine 5,000 UNIT/ML VIAL 5000 UNIT SUBCUT ×2 (11:07→17:41)
[2023-09-11 11:08] LABS: MANUAL DIFF FLAG NO
[2023-09-11 11:13] LABS: Basophils Percent Auto 0.3 % (0-2); Eosinophils Percent Auto 0.3 % (0-4); Hematocrit 31.2 % (37.0-47.0); Hemoglobin 10.3 g/dl (12.0-16.0); Imm Gran Abs Auto 0.01 X10*3/uL (0.00-0.03); Imm Gran Pct Auto 0.3 % (0.0-0.4); Lymphocytes Absolute Auto 0.6 X10*3/uL (1.2-4.9); Lymphocytes Percent Auto 16.7 % (20-40); Mean Corpuscular Hemoglobin 29.1 pg (27.0-33.0); Mean Corpuscular Volume 88.1 fL (80.0-98.0); Mean Platelet Volume 8.9 fL (9.4-12.3); Monocytes Absolute Auto 0.1 X10*3/uL (0.1-1.2); Monocytes Percent Auto 3.5 % (2-11); Neutrophils Absolute Auto 2.9 x10*3/uL (2.0-8.3); Neutrophils Percent Auto 78.9 % (45-73); Platelet Count 243 X10*3/uL (160-400); Red Blood Count 3.54 X10*6/uL (4.20-5.50); Red Cell Distribution Width 13.5 % (11.0-16.0); White Blood Count 3.7 X10*3/uL (4.8-10.8)
[2023-09-11 11:23] LABS: Anion Gap 10 (12-20); Blood Urea Nitrogen 12 mg/dL (9-16); Calcium 8.9 mg/dL (8.4-10.2); Carbon Dioxide 28 mmol/L (22-29); Chloride 104 mmol/L (96-108); Creatinine Clr Calc Pharmacy 103.3; Estimated Glomerular Filt Rate > 60; Glucose Random 136 mg/dL (60-115); Potassium 3.3 mmol/L (3.3-5.1); Sodium 139 mmol/L (135-145)
--- NOTE | 2023-09-11 13:03 | PC.RT ---
PACU called respiratory to assist with an intubation due to the decompensation of a patient, post extubation from a bronchoscopy. PACU stated that the patient was beginning to feel SOB and became stridorous. To lessen the stridor, the MD gave the patient an albuterol treatment but that did not help the patients' upper airway. The MD proceeded to intubate, with 80% of the supplies, not available or within reach, whatsoever. Blatantly ignored the importance of a stylet, colorimetric device and tube tamer. I placed the patient on a parapac transport ventilator to ease the transport to the ICU. Two doctors okayed the parapac, volumes were great, all vital signs were stable and we were told they would call when they were ready to transport.
[2023-09-11] MEDS: dexmedeTOMIDidine HCL/NS 400 MCG/100 ML INFUS..BTL 25.99 MCG IVCONT (13:11)
[2023-09-11] MEDS: propofoL 1,000 MG/100 ML VIAL 20.79 MG IVCONT ×2 (13:11→17:42)
--- NOTE | 2023-09-11 13:31 | MHC.CM.PN ---
Pt intubated following outpt bronchoscopy and is expected to start weaning attempts later today or tomorrow. Call placed to pt's spouse Humaira who states pt resides w/him and has 30 hrs of [employer] care per week. She has a walker and nebulizer but no other services or DME. [employer]'s assist w/transportation, ADL's and housekeeping. Humaira states he is pt's HCP - copy of form requested. Humaira will also transport pt to home at d/c. At this time, pt should not need additional services - d/c plan is for a return to home w/existing supports/services in place. CM to follow
[2023-09-11 15:13] LABS: ABG Refer to POC result
[2023-09-11] MEDS: dexmedeTOMIDidine HCL/NS 400 MCG/100 ML INFUS..BTL 17.33 MCG IVCONT (17:43)
--- NOTE | 2023-09-11 18:07 | PC.NURSE ---
Addendum entered by Marlon Xavier RN 09/12/23 18:26: 1830 neuro assessment - no sensation to L forehead but + sensation to L cheek. tongue midline. equal facial movements. no drooping. no drift to LUE but weak hand grasp. R hand grasp strong and no drift. pt c/o n/t to LUE + sensation. RLE strong and no drift. LLE raised approx 0.5in from the bed w/ drift and + sensation, also c/o n/t to LLE. pt unable to answer a/o questions correctly but recalls some things that happened throughout the day Addendum entered by Marlon Xavier RN 09/12/23 17:13: 1700 assessment - tongue midline. equal facial movements, otherwise no change from previous assessment. passed bedside swallow eval 6hrs post TNK. md informed. diet order placed and kitchen contacted. Addendum entered by Marlon Xavier RN 09/12/23 16:33: 1630 neuro assessment - tongue deviates to the left. R pupil 1mm larger than L. LUE hand grasp stronger than before, has a drift. LLE pt can wiggle foot slightly and states she has tingling sensation to her leg. Pt not answering a/o questions correctly but remembers previous made statements. Also of note, prior to this neuro assessment, this RN witnessed pt moving LLE w/ full ROM via camera over tele monitors in ICU and pt being able to sit herself up and repo herself in bed. This was reported to the optician manager along w MRI results. Addendum entered by Marlon Xavier RN 09/12/23 16:13: pt was able to correctly state what items are called throughout each assessment. informed of all abnormalities and pt complaints of pain or discomfort. pt also is able to remember statements made by staff members in the past but is unable to recall re-orientation statements such as the pt's name, , current hospital name, month, day, current year, recent events, etc. Addendum entered by Marlon Xavier RN 09/12/23 15:42: prev assessments not completed d/t pt having MRI done. one time dose ativan and zophran given as ordered for nausea and anxiety pre-MRI 1530 neuro assessment - pt unable to state correct name, , state, reason for admission but pt remembers her resp MD and that he stated she had a bronch done. LLE weakness w/ minimal sensation. pt able to raise LUE against gravity. no facial drooping. tongue midline. Addendum entered by Marlon Xavier RN 09/12/23 14:06: 1400 neuro assessment - pt not able to state the hospital name or town, year, name or . tongue deviates to L. pt able to lift both arms up and stated she feels this RN touching her LUE. pt was able to wiggle her L toes but unable to lift her leg up and stated she can feel herself wiggle her toes but is unable to feel from hip to ankle. R pupil remains slightly larger than L. RUE and RLE WNL. L side of face remains to have no sensation per pt. Addendum entered by Patricio Casanova RN 09/12/23 13:39: 1330 neuro assessment - Patient alert & oriented, no issues with speech at this time. No facial droop noted with assessment. Patient able to hold phone with left hand and text with right hand. Left hand grasp weaker than right. Reports face & hand improving. Moving bilat legs, but reports has no feeling still in left foot and denies ability to move left foot. Addendum entered by Marlon Xavier RN 09/12/23 13:07: 1300 neuro assessment - R pupil only slightly larger than L at this time, approx 1mm. pt felt this RN pinch her LUE. otherwise no change from previous assessment Addendum entered by Marlon Xavier RN 09/12/23 12:46: 1245 neuro assessment - tongue deviates to L. R pupul larger than L both reactive to light and accommodation. no sensation to LUE, L side of face and LLE. wiggles toes to LLE. able to raise LUE and hold. pt stating she is in the hospital, unable to correctly answer other questions. Addendum entered by Marlon Xavier RN 09/12/23 12:22: 1215 neuro assessment - tongue deviates to the L. LUE raised against gravity w/ drift, weaker hand grasp compared to R hand. equal facial movements, no facial drooping. LUE minimal sensation. L side of face no sensation. LLE able to shake leg +1 str and wiggle toes, still no movement. pt unable to answer name, , year, correct location but able to state she is in the hospital. Addendum entered by Marlon Xavier RN 09/12/23 12:05: 1200 neuro assessment. tongue midline. unequal facial movements R side of mouth slight droop. LUE improved movement, cannot raise off bed but can move hand. no sensation to LUE and LLE along w/ L side of face (no change from prev assessment). LLE minimal movement. pt unable to state name, , any part of date. pt knows she is in the hospital but believes she is in [facility]. pt not remembering what this RN is telling her w/ every 15min check (example, informed pt her name and but pt cannot recall from 15min ago). Addendum entered by Marlon Xavier RN 09/12/23 11:57: pt c/o chest discomfort, stated its not pain, pointed with her RUE across her chest and stated it feels like pressure. c/o 10/10 L sided headache. stated she doesnt know when this started. informed. EKG being obtained. Addendum entered by Marlon Xavier RN 09/12/23 11:52: 1010 pt c/o no sensation or movement to LLE. informed and assessed pt at bedside. stroke protocol initaited and followed. returned from CT around 1100. 1145 neuro assessment addition: L side of face minimal sensation. LUE minimal movement against gravity. pt unable to state name, . Addendum entered by Marlon Xavier RN 09/12/23 08:28: passed bedside swallow eval Addendum entered by Marlon Xavier RN 09/12/23 08:09: pt extubated this AM per verbal order. Pt was awake while on sedation and writing to communicate with staff, following commands. Extubated successfully. family contacted. zofran was given prior to extubation for nausea Original Note: informed pt bladder scan is 800ml. This RN attempted to wake pt up and inform her she needs to void and has a device that will cath the urine. pt nodded head but did not void.
[2023-09-11] MEDS: propofoL 1,000 MG/100 ML VIAL 25.99 MG IVCONT (21:20)
[2023-09-11] MEDS: fentaNYL citrate/NS 1,000 MCG/100 ML PLAST..BAG 7.5 MCG IVCONT (23:19)
[2023-09-12] VITALS (48 sets, daily range): BP systolic 104–157; BP diastolic 55–97; PULSE 59–121; RESP 13–26; TEMP 35–37.2; O2SAT 90–99; BMI 36.1
--- NOTE | 2023-09-12 | ECG_ITS ---
Test Reason : Angina Blood Pressure : / mmHG Vent. Rate : 066 BPM Atrial Rate : 066 BPM P-R Int : 134 ms QRS Dur : 090 ms QT Int : 430 ms P-R-T Axes : 053 -04 009 degrees QTc Int : 450 ms Normal sinus rhythm Minimal voltage criteria for LVH, may be normal variant ( Sokolow-Pedraza ) Borderline ECG No previous ECGs available Referred By: Clarita Velazquez Electronically Signed By:Eloy Sherman
[2023-09-12] MEDS: Heparin Sodium,Porcine 5,000 UNIT/ML VIAL 5000 UNIT SUBCUT ×2 (01:25→09:11)
[2023-09-12] MEDS: propofoL 1,000 MG/100 ML VIAL 25.99 MG IVCONT ×2 (01:28→04:17)
[2023-09-12] MEDS: Albuterol/Iprat 2.5/0.5MG 3 ML AMPUL.NEB INHALE ×7 (01:40→22:54)
[2023-09-12] MEDS: Midazolam HCl/PF 2 MG/2 ML VIAL IVPUSH ×2 (01:49→05:39)
[2023-09-12] MEDS: dexmedeTOMIDidine HCL/NS 400 MCG/100 ML INFUS..BTL 17.33 MCG IVCONT (02:57)
[2023-09-12] MEDS: dexAMETHasone sod phosphate 10 MG/ML VIAL IVPUSH ×3 (04:17→16:31)
[2023-09-12] MEDS: Pantoprazole Sodium 40 MG/10 ML VIAL IVPUSH (05:02)
[2023-09-12 05:08] LABS: VBG Base Excess 1.7 mmol/L; VBG HCO3 25 mmol/L (22-26); VBG pCO2 36 mmHg; VBG pH 7.45 (7.32-7.43); VBG pO2 81 mmHg
[2023-09-12 05:14] LABS: MANUAL DIFF FLAG NO
[2023-09-12 05:17] LABS: Hematocrit 34.2 % (37.0-47.0); Hemoglobin 11.1 g/dl (12.0-16.0); Imm Gran Abs Auto 0.02 X10*3/uL (0.00-0.03); Imm Gran Pct Auto 0.5 % (0.0-0.4); Lymphocytes Absolute Auto 0.5 X10*3/uL (1.2-4.9); Lymphocytes Percent Auto 12.6 % (20-40); Mean Corpuscular HGB Conc 32.5 g/dl (31.0-35.0); Mean Corpuscular Hemoglobin 28.7 pg (27.0-33.0); Mean Corpuscular Volume 88.4 fL (80.0-98.0); Mean Platelet Volume 9.2 fL (9.4-12.3); Monocytes Absolute Auto 0.2 X10*3/uL (0.1-1.2); Monocytes Percent Auto 3.6 % (2-11); Neutrophils Absolute Auto 3.5 x10*3/uL (2.0-8.3); Neutrophils Percent Auto 83.3 % (45-73); Platelet Count 287 X10*3/uL (160-400); Red Blood Count 3.87 X10*6/uL (4.20-5.50); Red Cell Distribution Width 13.7 % (11.0-16.0); White Blood Count 4.2 X10*3/uL (4.8-10.8)
[2023-09-12 05:18] LABS: Venous Blood Gas Refer to POC result
[2023-09-12 05:35] LABS: Anion Gap 14 (12-20); Blood Urea Nitrogen 12 mg/dL (9-16); Calcium 9.3 mg/dL (8.4-10.2); Carbon Dioxide 24 mmol/L (22-29); Chloride 106 mmol/L (96-108); Creatinine Clr Calc Pharmacy 104.8; Estimated Glomerular Filt Rate > 60; Glucose Random 145 mg/dL (60-115); Magnesium 2.2 mg/dL (1.6-2.6); Phosphorus 2.7 mg/dL (2.7-4.5); Potassium 4.3 mmol/L (3.3-5.1); Sodium 140 mmol/L (135-145)
--- NOTE | 2023-09-12 07:00 | CA_ITS ---
Transthoracic Echocardiogram Patient (Last, First, Middle): Katarzyna Montalvo M Gender: Female Date of : 1975 Age: 48 Procedure Date: 09/12/2023 Procedure Type: Transthoracic Echocardiogram Location: ICU Height: 154.94 cm Weight: 86.18 kg BSA: 1.85 m2 Heart Rate: bpm BP: 144 / 78 mmHg Medication Aide: DARREN Referring MD: Clarita Velazquez MD Symptoms: s/p Stroke Study Quality: Fair Conclusions: - Mildly increased left ventricular cavity size. There is mildly increased left ventricular wall thickness. The left ventricular systolic function is borderline reduced. The visually estimated ejection fraction is between 45-50%. - Mildly increased right ventricular cavity size. There is normal right ventricular systolic function. Findings Left Ventricle Mildly increased left ventricular cavity size. There is mildly increased left ventricular wall thickness. The left ventricular systolic function is borderline reduced. The visually estimated ejection fraction is between 45 50%. There is no evidence of regional wall motion abnormalities. Abnormal diastolic function is noted. E/E prime ratio is between 8 and 15 consistent with indeterminate filling pressures. Right Ventricle Mildly increased right ventricular cavity size. There is normal right ventricular systolic function. Atria The left atrium is mildly dilated. The right atrium is normal in size. Aortic Valve Normal aortic valve structure and function. There is no aortic valve stenosis. There is no aortic valve regurgitation. Mitral Valve Normal mitral valve structure and function. There is trace mitral valve regurgitation. There is no mitral valve stenosis. Pulmonic Valve Normal pulmonic valve structure and function. There is trace pulmonic valve regurgitation. Tricuspid Valve Normal tricuspid valve structure. There is mild tricuspid valve regurgitation. Normal right atrial pressure. There is no evidence of pulmonary hypertension. Great Vessels All visible segments of the aorta are normal in size. The visualized portions of the pulmonary artery and branches are normal. Venous The inferior vena cava is normal in size and collapses greater than 50% with inspiration. Pericardium/Pleural There is no evidence of pericardial effusion. Prior Study Comparison No prior study available for comparison. Measurements 2D Linear Measurements IVSd: 1.06 0.6-0.9/0.6-1.0 cm LVIDd: 5.65 3.9-5.3/4.2-5.9 cm LVIDd Index: 3.05 2.4-3.2/2.2-3.1 cm/m2 LVIDs: 3.96 2.0-3.6 cm LVPWd: 1.05 0.7-1.1 cm Ao Root: 3.60 2.1-3.5 cm LA Diam: 3.80 2.7-3.8/3.0-4.0 cm LAIDs Index: 2.05 1.5-2.3 cm/m2 LV Mass: 298.40 67-162/88-224 g LV Mass Index: 161.30 43-95/49-115 g/m2 LVOT Diam: 2.10 3.0+(-)1.3 cm Mitral Valve MV Pk E: 0.84 MV PK A: 0.81 MV Decel Time: 186.00 E/A: 1.00 E'Lateral: 12.10 E'Medial: 10.80 E/E' Med: 7.80 E/E' Lat: 7.00 PHT: 54.00 MVA PHT: 4.07 Decel Perry: 4.54 Aortic Valve AoV Pk Patricio: 1.38 AoV Mn Patricio: 1.06 AoV VTI: 0.31 AoV Pk Grad: 8.00 Aov Mn Grad: 5.00 KARAN Cont.VTI: 2.74 LVOT LVOT Pk Patricio: 1.04 LVOT Mn Patricio: 0.80 LVOT VTI: 0.25 LVOT Pk Grad: 4.00 LVOT Mn Grad: 3.00 LVOT Diam: 2.10 LVOT Area: 3.46 Diastolic Function MV Pk E: 0.84 MV Pk A: 0.81 E/A: 1.00 E'Medial: 10.80 E/E' Med: 7.80 E' Laterial: 12.10 E/E' Lat: 7.00 Right Ventricle TAPSE (mm): 28.20 TVS' Patricio: 13.20 Tricuspid Valve TR Pk Patricio: 2.31 TR Pk Grad: 21.00 RA Press: 3.00 RVSP: 24.00 Great Vessels Aorta Ao Root-2D: 3.60 2.0-3.7 cm Ao Asc: 3.10 2.1-3.4 cm Ao Arch: 2.90 Updated in Other Vendor System with Status of Final Eloy Sherman MD electronically signed on 09/12/2023 2:56:33 PM with status of Final
--- NOTE | 2023-09-12 07:36 | PHA.MEDREC ---
Pharmacy Consult ? Medication Reconciliation Pharmacy has completed the medication reconciliation. Reviewed med rec done by nursing
[2023-09-12] MEDS: ondansetron HCL 4 MG/2 ML VIAL IVPUSH ×3 (08:20→20:01)
--- NOTE | 2023-09-12 08:22 | P.PNCC_ITS ---
Subjective Subjective Date of Service: 09/12/23 Interval History: no signficant overnight events Critical Care Time (minutes): 60 Physical Exam 2 Vital Signs: Vital Signs: Last Vital Signs Temp 97.8 F 09/12/23 07:00 Pulse 93 09/12/23 08:04 Resp 20 09/12/23 08:04 BP 134/82 09/12/23 07:00 Pulse Ox 93 09/12/23 07:00 O2 Del Method Mechanical Ventil ation 09/12/23 07:00 O2 Flow Rate 6 09/11/23 08:55 FiO2 21 09/12/23 07:00 BMI result Body Mass Index 36.1 Const: General: cooperative, healthy appearing, comfortable, no acute distress, well developed, alert, awake and Physically active O rientation/consciousness: patient oriented x3 HEENT: Head: Yes normal to inspection, Yes normocephalic and Yes atraumatic Eyes: General: appearance normal, both eyes and all related structures Neck: Neck: Yes normal visual inspection, Yes full ROM, Yes no meningeal signs, Yes trachea midline and Yes supple Chest: Chest palpation & inspection: normal inspection of the chest Resp: Other: appreciable decreased breath sounds throughout; appreciable expiratory wheezing; no appreciable rales, rhonchi Effort & Inspection: normal respiratory effort and able to speak in complete sentences Cardio: Rate: regular rate Rhythm: regular rhythm GI: Inspection: Yes normal to inspection, No Abdominal wall edema and No distended Palpation (GI): Soft to palpation, not firm, nontender, no guarding and not rigid Skin: General skin exam: no rashes or lesions noted Neuro: General: patient oriented x3, tone normal, moves all extremities, no meningeal signs and no focal motor deficits Extrem: General: Yes normal to inspection, Yes full ROM, Yes capillary refill normal and Yes no clubbing, cyanosis or edema Psych: Appearance: grossly normal Objective Data Labs 09/12/23 04:59 09/12/23 04:59 Labs: Laboratory Results - last 24 hr 09/11/23 09/11/23 09/12/23 10:26 11:04 04:59 WBC 3.7 L 4.2 L RBC 3.54 L 3.87 L Hgb 10.3 L 11.1 L Hct 31.2 L 34.2 L MCV 88.1 88.4 MCH 29.1 28.7 MCHC 33.0 32.5 RDW 13.5 13.7 Plt Count 243 D 287 MPV 8.9 L 9.2 L Immature Gran % (Auto) 0.3 0.5 H Neut % (Auto) 78.9 H 83.3 H Lymph % (Auto) 16.7 L 12.6 L [place] % (Auto) 3.5 3.6 Eos % (Auto) 0.3 0.0 Baso % (Auto) 0.3 0.0 Lymph # (Auto) 0.6 L 0.5 L [place] # (Auto) 0.1 0.2 Eos # (Auto) 0.0 0.0 Baso # (Auto) 0.0 0.0 Abs Immat Gran (auto) 0.01 0.02 Absolute Neuts (auto) 2.9 3.5 Absolute Nucleated RBC 0.000 0.000 Nucleated RBC % (auto) 0.0 0.0 O2 Saturation 100.0 ABG pH at Pt Temp 7.44 ABG pCO2 at Pt Temp 46 H ABG pO2 at Pt Temp 117 H ABG HCO3 31 H ABG Base Excess (Actual) 6.6 VBG pH 7.45 H VBG pCO2 36 VBG pO2 81 VBG HCO3 25 VBG O2 Saturation 98.0 VBG Base Excess 1.7 Sodium 139 140 Potassium 3.3 4.3 D Chloride 104 106 Carbon Dioxide 28 24 Anion Gap 10 L 14 BUN 12 12 Creatinine 0.68 0.67 Estim Creat Clear Calc 103.3 104.8 Estimated GFR > 60 > 60 Random Glucose 136 H 145 H Calcium 8.9 9.3 Phosphorus 2.7 Magnesium 2.2 Microbiology Microbiology Results: Microbiology 09/11/23 08:40 Bronchial Brushings Gram Stain - Final 09/11/23 08:40 Bronchial Washings Gram Stain - Final Progress Note: A&P Assessment and plan (1) Asthma: Status: Acute (2) KEITH (obstructive sleep apnea): Status: Acute (3) Vocal cord dysfunction: Status: Acute (4) Dysphagia: Status: Acute Plan Patient is a 48 Y F with prior vocal cord dysfunction and bronchospasm post- operatively, as well as obstructive sleep apnea, severe asthma, followed by Juan A and Dr. Rico, previously on biologics and status post thermoplasty and necessitated follow-up bronchoscopy on 09/09; patient reportedly tolerated bronchoscopy well, though reportedly developed stridor and wheezing, was re- intubated in PACU N: no acute issues CV: no acute issues R: severe asthma, s/p thermoplasty; reportedly devleoped stridor/wheezing in PACU, likely component of vocal cord dysfunction, intubated 09/10, extubated 09/11; duonebs, steroids; appreciate pulmonology recommendations GI: PO diet : no acute issues H: no acute issues ID: no acute issues E: no acute issues Quality Stroke Does the patient have a stroke diagnosis?: No VTE Prior VTE?: No VTE Risk Level:: Medical - moderate - high VTE Device Contraindication: N/A - Device Ordered VTE Drug Contraindication: N/A - Med Ordered
[2023-09-12] MEDS: OXcarbazepine 150 MG TABLET PO (09:11)
[2023-09-12] MEDS: levETIRAcetam 1,000 MG TABLET 1000 MG PO ×2 (09:11→20:02)
[2023-09-12] MEDS: Sertraline HCL 50 MG TABLET PO (09:11)
[2023-09-12 10:20] LABS: Glucose, Whole Blood 140 mg/dL (60-115)
--- NOTE | 2023-09-12 10:34 | PM.EVENT ---
Event Note Date of Service: 09/12/23 Event Note: of note, at 10:10, patient reported decreased sensation and weakness L face, L LE; upon evaluation, patient found to have L facial droop, L LE weakness and encephalopathy, oriented to only person; stroke protocol activated and patient transported immediately to CT; results of CT non-contrast H discussed w/ radiologist at 10:59, not suggestive of acute hemorrhage; TNK given at 11:01; of note, there was slight delay in TNK administration due to delay in obtaining results of CT non-contrast H and determining eligibility with family Time Spent With Patient Time: Total time managing care of this patient today ____ minutes.
[2023-09-12] MEDS: Tenecteplase 50 MG/10 ML KIT 22 MG IVPUSH (11:00)
--- NOTE | 2023-09-12 11:15 | MHC.STROKE ---
ICU staff reporting that patient c/o the inability to move left leg and left sided weakness at approx 1010. Notified of stroke protocol in ICU at [address] scan by 1020. Confirmed weight by bedscale. Weight 86.5kg. CT and CTA completed. Dr. Velazquez spoke with Dr. Raza. Plan is for TNK if no bleed on CT Delay in head CT results. This RN along with ICU educator placed multiple calls to [facility]. There was also a delay in determining eligibility as Dr. Velazquez was not sure if there was a prior surgery within the past 3 months. Initially could not locate to discuss recent medical history. Once located, the reported knee replacement surgery on 05/08. Dr. Velazquez finally notified by [facility]. No bleed on head CT TNK 22mg IVP administered at 1100. Stroke Education provided to by hospital education coordinator. Pt will be NPO for 6 hours due to TNK administration. Will continue to assist as needed.
--- NOTE | 2023-09-12 12:20 | P.CNNE_ITS ---
History of Present Illness Data of Consult Service Date: 09/12/23 Primary Care Provider: Martine Jones [facility] Reason for consult: Stroke 48 years old woman with asthma who was in hospital for complications of asthma and had a bronchoscopy yesterday. After that there was some pulmonary issues and she was intubated and transferred to ICU. Later she was extubated. After extubation her mental status and neurological examination was okay until 1 point it changed and she was noted to have new left-sided facial weakness and left- sided weakness. Acute stroke protocol was started and after doing appropriate testing she was treated with TNK. I saw her in ICU. There was no complaint of headache nausea vomiting or dizziness or change in speech. There was no indication of seizure. Review of Systems 2 Review of Systems: As per HPI [facility] Past Medical History Medical History Tachycardia Asthma-COPD overlap syndrome KEITH (obstructive sleep apnea) Chronic allergic rhinitis COVID-19 Nasal airway abnormality Dysphagia Asthma Family History Family History Paternal Grandfather Cancer Other Asthma Surgical History Surgical History Hx of hysterectomy History of lung surgery History of total left knee replacement History of bunionectomy History of bronchoscopy Social History Social History Household Members: Spouse Alcohol intake: current Alcohol intake frequency: holidays/special occasions only Alcohol type: wine Patient Tobacco Use Status: Never used Tobacco Use of substances other than those prescribed or required for medical reasons: Unknown Currently Displaying Signs/Symptoms of Drug Intoxication Withdrawal: No Have you been hit, kicked, punched, or otherwise hurt by someone within the past year? If so, by whom?: No Are you DNR?: No Advance Directives: No Advance Directives Information Provided: Yes Advance Directives on File: No Eating poorly because of decreased appetite: No Patient : No service: No Current occupational status: retired Meds Allergies Allergy/AdvReac Type Severity Reaction Status Date / Time tramadol [TRAMADOL] Allergy Severe THROAT Verified 09/11/23 06:44 SWELLING Active Medications: Current Medications Albuterol/Ipratropium (Albuterol/Iprat 2.5/0.5mg 3 Ml Ampul.Neb) 3 ml INHALE Q4H [facility] Last Admin: 09/12/23 11:15 Dose: 3 ml Clonidine HCl (Clonidine Hcl 0.1 Mg Tablet) 0.1 mg PO BEDTIME [facility]; Protocol Dexamethasone Sodium Phosphate (Dexamethasone Sod Phosphate 10 Mg/Ml Vial) 10 mg IVPUSH Q6H [facility] Stop: 09/12/23 17:01 Last Admin: 09/12/23 12:01 Dose: 10 mg Fentanyl (Fentanyl Citrate/Pf 100 Mcg/2 Ml Vial) 50 mcg IVPUSH Q2H PRN; Protocol PRN Reason: Pain, Moderate(Pain Scale 4-6) Levetiracetam (Levetiracetam 1,000 Mg Tablet) 1,000 mg PO BID [facility] Last Admin: 09/12/23 09:11 Dose: 1,000 mg Naloxone HCl (Naloxone Hcl 0.4 Mg/Ml Vial) 0.2 mg IVPUSH Q2M PRN PRN Reason: Excessive sedation or RR < 8 Omeprazole (Omeprazole 20 Mg Capsule.) 20 mg PO BID@0630,1630 [facility] Oxcarbazepine (Oxcarbazepine 150 Mg Tablet) 150 mg PO DAILY [facility] Last Admin: 09/12/23 09:11 Dose: 150 mg Sertraline HCl (Sertraline Hcl 50 Mg Tablet) 50 mg PO DAILY [facility] Last Admin: 09/12/23 09:11 Dose: 50 mg Sodium Chloride (0.9 % Sodium Chloride Flush 3 Ml Syringe) 3 ml IVFLUSH QSHIFT [facility] Home Medications ?Medication ?Instructions ?Recorded ?Confirmed ?Last Taken ?Type levetiracetam 1,000 mg tablet 1,000 mg PO BID 09/11/20 09/08/23 Unknown History (Keppra) meloxicam 7.5 mg tablet 7.5 mg PO DAILY 03/05/21 Unknown History acetaminophen 500 mg tablet 1,000 mg PO TID 09/23/22 09/08/23 09/11/23 History cholecalciferol (vitamin D3) 50 50 mcg PO DAILY 09/23/22 09/08/23 Unknown History mcg (2,000 unit) tablet melatonin 3 mg tablet 3 - 6 mg PO BEDTIME PRN insomnia 09/23/22 09/08/23 Unknown History clonidine HCl 0.1 mg tablet 0.1 mg PO BEDTIME 03/06/23 09/08/23 09/11/23 History guaifenesin 100 mg/5 mL oral liquid 200 mg PO Q4H PRN 03/06/23 Unknown History nebulizers 03/06/23 Unknown History oxcarbazepine 300 mg tablet 150 mg PO DAILY 03/06/23 09/08/23 Unknown History sertraline 50 mg tablet 50 mg PO DAILY 03/06/23 09/08/23 Unknown History Physical Exam 2 Vital Signs: Vital Signs: Last Vital Signs Temp 98.0 F 09/12/23 12:00 Pulse 80 09/12/23 12:15 Resp 16 09/12/23 12:15 BP 135/69 09/12/23 12:15 Pulse Ox 95 09/12/23 12:15 O2 Del Method Nasal Cannula 09/12/23 12:15 O2 Flow Rate 2 09/12/23 12:15 FiO2 21 09/12/23 07:00 BMI result Body Mass Index 36.1 Neuro: Other: She was alert and awake looking around both somewhat with vague affect. There was mild right-sided facial weakness. Visual field examination suggested left- sided extinction. Double simultaneous sensory is sensation also were not perceived on left side. There was mild left-sided weakness. Plantars were flat. Speech was normal. Results Labs 09/12/23 04:59 09/12/23 04:59 Labs: Short CBC 09/12/23 Range/Units 04:59 WBC 4.2 L (4.8-10.8) X10*3/uL Hgb 11.1 L (12.0-16.0) g/dl Hct 34.2 L (37.0-47.0) % Plt Count 287 (160-400) X10*3/uL BMP 09/12/23 04:59 Sodium 140 Potassium 4.3 D Chloride 106 Carbon Dioxide 24 BUN 12 Creatinine 0.67 Calcium 9.[address] did not reveal any significant abnormality. CTA of brain and neck did not reveal any significant stenosis. Microbiology Microbiology Results: Microbiology 09/11/23 08:40 Bronchial Brushings Gram Stain - Final 09/11/23 08:40 Bronchial Brushings Routine Culture - Preliminary Streptococcus viridans group 09/11/23 08:40 Bronchial Washings Gram Stain - Final 09/11/23 08:40 Bronchial Washings Routine Culture - Preliminary Gram negative fabian Streptococcus viridans group Assessment and Plan (1) Stroke: Qualifiers: CVA mechanism: unspecified Qualified Code(s): I63.9 - Cerebral infarction, unspecified Status: Acute 48 years old woman with sudden onset of left-sided weakness and facial asymmetry was treated with TNK after evaluation for acute stroke. She continues to have mild left-sided weakness. At this time my recommendation is to follow through with tPA protocol and managed blood pressure. Blood thinners should be avoided until tomorrow until about 11:00. Noncontrast MRI of brain is recommended for proper evaluation. Procedures Date of Service Date of Service: 09/12/23
[2023-09-12 12:43] LABS: Troponin-I High Sensitivity < 2.7 ng/L (<3.5-17.0)
--- NOTE | 2023-09-12 13:13 | P.POSTANES_ITS ---
Post Anesthesia Evaluation Post Anesthesia Evaluation Date of Service: 09/12/23 Vital Signs: Vital Signs Temp Pulse Resp BP Pulse Ox O2 Del Method O2 Flow Rate 09/12/23 13:00 97.9 F 77 16 132/93 H 95 Nasal Cannula 2 09/12/23 12:45 97.9 F 73 20 134/79 98 Nasal Cannula 2 09/12/23 12:30 73 13 147/92 H 91 L Nasal Cannula 2 09/12/23 12:15 80 16 135/69 95 Nasal Cannula 2 09/12/23 12:00 98.0 F 68 15 135/69 99 Nasal Cannula 2 09/12/23 11:45 66 16 145/60 H 96 Nasal Cannula 2 09/12/23 11:30 71 14 154/79 H 98 Nasal Cannula 2 09/12/23 11:18 68 18 09/12/23 11:15 97.6 F 70 16 144/78 H 96 Nasal Cannula 2 09/12/23 11:15 97.5 F 72 16 144/78 H 96 Nasal Cannula 2 09/12/23 11:11 97.5 F 75 14 154/79 H 95 Nasal Cannula 2 09/12/23 11:07 74 15 143/83 H 90 L Nasal Cannula 2 09/12/23 10:11 76 16 138/84 95 Nasal Cannula 2 09/12/23 10:00 97.9 F 89 15 138/84 92 Nasal Cannula 2 09/12/23 09:00 97.7 F 66 19 104/62 96 Nasal Cannula 2 09/12/23 08:04 93 20 09/12/23 08:00 97.7 F 76 19 127/85 96 Nasal Cannula 2 09/12/23 07:00 97.8 F 64 19 134/82 93 Mechanical Ventilation 09/12/23 06:00 63 18 135/78 92 Mechanical Ventilation 09/12/23 05:36 74 24 H 09/12/23 05:28 09/12/23 05:00 66 17 141/83 H 95 Mechanical Ventilation 09/12/23 04:21 97.6 F 09/12/23 04:00 62 19 137/85 95 Mechanical Ventilation 09/12/23 03:55 09/12/23 03:00 66 19 135/82 95 Mechanical Ventilation 09/12/23 02:07 09/12/23 02:00 69 19 133/79 93 Mechanical Ventilation 09/12/23 01:45 87 21 H FiO2 09/12/23 13:00 09/12/23 12:45 09/12/23 12:30 09/12/23 12:15 09/12/23 12:00 09/12/23 11:45 09/12/23 11:30 09/12/23 11:18 09/12/23 11:15 09/12/23 11:15 09/12/23 11:11 09/12/23 11:07 09/12/23 10:11 09/12/23 10:00 09/12/23 09:00 09/12/23 08:04 09/12/23 08:00 09/12/23 07:00 21 09/12/23 06:00 09/12/23 05:36 09/12/23 05:28 21 09/12/23 05:00 21 09/12/23 04:21 09/12/23 04:00 25 09/12/23 03:55 21 09/12/23 03:00 09/12/23 02:07 09/12/23 02:00 09/12/23 01:45 Anesthesia: General Endotracheal-GETA Mental Status: Awake Pain Control: Satisfactory Nausea/Vomiting: None Hydration: Adequate Anesthesia-Related Issues: No Anes. Related Issues (10:00Patient s/p bronchos copy yesterday. Needed reintubation in PACU secondary to respiratory distress. Now extubated. Still with some breathing difficulty but mild. VSS)
[2023-09-12 13:41] LABS: INTERNATIONAL NORM RATIO 0.9 (0.9-1.1)
--- NOTE | 2023-09-12 14:39 | PC.RT ---
PACU called respiratory to assist with an intubation due to the decompensation of a patient, status post extubation from a bronchoscopy. MD intubated with a 7.0 ETT and secured, 22 @ lip. I placed the patient on a parapac transport ventilator for ease of transfer to the ICU; volumes were within expectable parameters and all vital signs were stable.
[2023-09-12] MEDS: LORazepam 2 MG/ML VIAL IVPUSH (15:50)
[2023-09-12 16:29] LABS: Glucose, Whole Blood 112 mg/dL (60-115)
[2023-09-12] MEDS: 0.9 % Sodium Chloride Flush 3 ML SYRINGE IVFLUSH (20:01)
[2023-09-12] MEDS: Acetaminophen 325 MG TABLET 650 MG PO (20:02)
[2023-09-12] MEDS: cloNIDine HCL 0.1 MG TABLET PO (20:02)
[2023-09-12 21:05] LABS: Glucose, Whole Blood 127 mg/dL (60-115)
[2023-09-12] MEDS: LORazepam 2 MG/ML VIAL 1 MG IVPUSH (22:00)
[2023-09-13] VITALS (23 sets, daily range): BP systolic 114–143; BP diastolic 54–87; PULSE 69–94; RESP 13–24; TEMP 36.3–37; O2SAT 92–100; BMI 37.9
[2023-09-13] MEDS: Acetaminophen 325 MG TABLET 650 MG PO ×4 (00:55→20:38)
[2023-09-13] MEDS: Albuterol/Iprat 2.5/0.5MG 3 ML AMPUL.NEB INHALE ×6 (04:01→23:17)
[2023-09-13 04:51] LABS: MANUAL DIFF FLAG NO
[2023-09-13 04:52] LABS: Hematocrit 31.3 % (37.0-47.0); Hemoglobin 10.2 g/dl (12.0-16.0); Imm Gran Abs Auto 0.03 X10*3/uL (0.00-0.03); Imm Gran Pct Auto 0.3 % (0.0-0.4); Lymphocytes Absolute Auto 1.6 X10*3/uL (1.2-4.9); Lymphocytes Percent Auto 17.4 % (20-40); Mean Corpuscular HGB Conc 32.6 g/dl (31.0-35.0); Mean Corpuscular Hemoglobin 29.1 pg (27.0-33.0); Mean Corpuscular Volume 89.2 fL (80.0-98.0); Mean Platelet Volume 9.3 fL (9.4-12.3); Monocytes Absolute Auto 0.6 X10*3/uL (0.1-1.2); Neutrophils Absolute Auto 7.1 x10*3/uL (2.0-8.3); Neutrophils Percent Auto 76.3 % (45-73); Platelet Count 310 X10*3/uL (160-400); Red Blood Count 3.51 X10*6/uL (4.20-5.50); Red Cell Distribution Width 13.9 % (11.0-16.0); White Blood Count 9.3 X10*3/uL (4.8-10.8)
[2023-09-13 05:08] LABS: Albumin Level 3.5 g/dL (3.5-5.0); Anion Gap 12 (12-20); Blood Urea Nitrogen 20 mg/dL (9-16); Calcium 8.8 mg/dL (8.4-10.2); Carbon Dioxide 26 mmol/L (22-29); Chloride 106 mmol/L (96-108); Cholesterol 194 mg/dL (<200); Creatinine Clr Calc Pharmacy 96.2; Estimated Glomerular Filt Rate > 60; Glucose Random 102 mg/dL (60-115); HDL Cholesterol 72 mg/dL (>40); LDL Cholesterol Calculated 97 mg/dL (<100); Magnesium 2.1 mg/dL (1.6-2.6); Phosphorus 2.7 mg/dL (2.7-4.5); Potassium 3.7 mmol/L (3.3-5.1); Sodium 140 mmol/L (135-145); Triglycerides 127 mg/dL (<150)
[2023-09-13 05:14] LABS: Estimated Average Glucose 105 mg/dL; Hemoglobin A1c % 5.3 % (<6.0)
[2023-09-13] MEDS: Omeprazole 20 MG CAPSULE.DR PO ×2 (05:53→15:58)
--- NOTE | 2023-09-13 06:32 | PC.NURSE ---
Pt alerts and responds to her name, though states she does not know her name, , or age of when asked. When she did offer a specific only once it was incorrect (stated ?October 26, 1973?). Pt alternates between stating the current year is ?1975?, ?1964?, or states ?I don?t know?. Consistently states she is in [place] at [facility]. This continues despite reorienting hourly with neuro assessments. Pt verbalizes often that she knows she is in the hospital and keeps asking So do you think I will be able to go upstairs tomorrow even with this memory loss, so I can get PT and go home ?? 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 Pt was able to raise arms straight out in front of her and maintain them there when asked, no drift noted in the evening, though once later in the shift demonstrated a mild drift that has not been observed since. Pt reports weakness in her LLE and inability to move it or lift it when asked to do so. Pt spontaneously moving all extremities during assessment questions, observed moving both arms to fix and braid her hair; legs are restless with pt observed alternating shaking each foot side to side while resting in bed. TIFFANIE Alejandro was present in the room during this. Later when asked to roll for changing the bed pad, the patient rolled spontaneously by herself with left extremities onto her right side without issue. On camera in the nursing station (without staff present in the patient?s room), the patient was observed multiple times throughout the shift moving her left leg spontaneously to hang over the side of the bed and back onto the bed, as well as drawing her left leg and right leg up towards her body in a butterfly position with same range of motion bilaterally, without assistance from her upper extremities noted.? This morning pt said ?Ow? when left toe was pinched to assess sensation, with observed withdrawal to pinch despite pt still reporting numbness at this time. Pt continues to deny knowing year or time, although stated ?Oh look, the sun is coming up and my birds are coming out? while this creative services writer and nursing aid changed the patient's bedding. Pt has been weaned to room air overnight per POWER TOOL REPAIRER with verbal order for goal to maintain >88%; spo2 has been greater than 93% while on room air. Breathing has been even and unlabored without distress for the duration of creative services writer?s shift. Please see shift assessments, neuro assessments, tasks, and EMAR for full details.
[2023-09-13 07:21] LABS: Glucose, Whole Blood 102 mg/dL (60-115)
--- NOTE | 2023-09-13 08:28 | P.PNCC_ITS ---
Subjective Subjective Date of Service: 09/13/23 Interval History: no significant overnight events; continues to endorse new and evolving neurological symptoms, however, not consistent with specific cerebral territory, and in setting of overall grossly reassuring stroke work-up Critical Care Time (minutes): 60 Physical Exam 2 Vital Signs: Vital Signs: Last Vital Signs Temp 98.6 F 09/13/23 08:00 Pulse 94 09/13/23 08:00 Resp 21 H 09/13/23 08:00 BP 136/87 09/13/23 08:00 Pulse Ox 95 09/13/23 08:00 O2 Del Method Room Air 09/13/23 08:00 O2 Flow Rate 1 09/13/23 02:00 FiO2 21 09/12/23 07:00 BMI result Body Mass Index 37.9 Const: General: cooperative, healthy appearing, comfortable, no acute distress, well developed, alert, awake and Physically active HEENT: Head: Yes normal to inspection, Yes normocephalic and Yes atraumatic Eyes: General: appearance normal, both eyes and all related structures Neck: Neck: Yes normal visual inspection, Yes full ROM, Yes no meningeal signs and Yes supple Chest: Chest palpation & inspection: normal inspection of the chest Resp: Other: decreased breath sounds throughout; some appreciable wheezing; no appreciable rales, rhonchi Effort & Inspection: normal respiratory effort Cardio: Rate: regular rate Rhythm: regular rhythm GI: Inspection: Yes normal to inspection, No Abdominal wall edema and No distended Palpation (GI): Soft to palpation, not firm, nontender, no guarding and not rigid Skin: General skin exam: no rashes or lesions noted Neuro: Other: cranial nerve exam intact; of note, no appreciable facial droop; 5/5 strength R UE, R LE, L UE; moves L toes; unable to flex/extend L knee; unable to resist L leg against gravity; reports decreased sensation L LE at level of knee and below; awake, alert, oriented to person, place, time; no appreciable neglect General: no meningeal signs Extrem: General: Yes normal to inspection, Yes capillary refill normal and Yes no clubbing, cyanosis or edema Objective Data Labs 09/13/23 04:36 09/13/23 04:36 Labs: Laboratory Results - last 24 hr 09/12/23 09/12/23 09/12/23 10:15 11:14 13:28 WBC RBC Hgb Hct MCV MCH MCHC RDW Plt Count MPV Immature Gran % (Auto) Neut % (Auto) Lymph % (Auto) [place] % (Auto) Eos % (Auto) Baso % (Auto) Lymph # (Auto) [place] # (Auto) Eos # (Auto) Baso # (Auto) Abs Immat Gran (auto) Absolute Neuts (auto) Absolute Nucleated RBC Nucleated RBC % (auto) PT 11.0 L INR 0.9 Sodium Potassium Chloride Carbon Dioxide Anion Gap BUN Creatinine Estim Creat Clear Calc Estimated GFR POC Glucose 140 H Random Glucose Estimat Average Glucose Hemoglobin A1c % Calcium Phosphorus Magnesium Troponin I High Sens < 2.7 Albumin Triglycerides Cholesterol LDL Cholesterol, Calc HDL Cholesterol 09/12/23 09/12/23 09/13/23 16:25 21:02 04:36 WBC 9.3 RBC 3.51 L Hgb 10.2 L Hct 31.3 L MCV 89.2 MCH 29.1 MCHC 32.6 RDW 13.9 Plt Count 310 MPV 9.3 L Immature Gran % (Auto) 0.3 Neut % (Auto) 76.3 H Lymph % (Auto) 17.4 L [place] % (Auto) 6.0 Eos % (Auto) 0.0 Baso % (Auto) 0.0 Lymph # (Auto) 1.6 [place] # (Auto) 0.6 Eos # (Auto) 0.0 Baso # (Auto) 0.0 Abs Immat Gran (auto) 0.03 Absolute Neuts (auto) 7.1 Absolute Nucleated RBC 0.000 Nucleated RBC % (auto) 0.0 PT INR Sodium 140 Potassium 3.7 Chloride 106 Carbon Dioxide 26 Anion Gap 12 BUN 20 H Creatinine 0.73 Estim Creat Clear Calc 96.2 Estimated GFR > 60 POC Glucose 112 127 H Random Glucose 102 Estimat Average Glucose 105 Hemoglobin A1c % 5.3 Calcium 8.8 Phosphorus 2.7 Magnesium 2.1 Troponin I High Sens Albumin 3.5 Triglycerides 127 Cholesterol 194 LDL Cholesterol, Calc 97 HDL Cholesterol 72 09/13/23 07:17 WBC RBC Hgb Hct MCV MCH MCHC RDW Plt Count MPV Immature Gran % (Auto) Neut % (Auto) Lymph % (Auto) [place] % (Auto) Eos % (Auto) Baso % (Auto) Lymph # (Auto) [place] # (Auto) Eos # (Auto) Baso # (Auto) Abs Immat Gran (auto) Absolute Neuts (auto) Absolute Nucleated RBC Nucleated RBC % (auto) PT INR Sodium Potassium Chloride Carbon Dioxide Anion Gap BUN Creatinine Estim Creat Clear Calc Estimated GFR POC Glucose 102 Random Glucose Estimat Average Glucose Hemoglobin A1c % Calcium Phosphorus Magnesium Troponin I High Sens Albumin Triglycerides Cholesterol LDL Cholesterol, Calc HDL Cholesterol Microbiology Microbiology Results: Microbiology 09/11/23 08:40 Bronchial Washings Gram Stain - Final 09/11/23 08:40 Bronchial Washings Routine Culture - Final Providencia rettgeri Streptococcus viridans group 09/11/23 08:40 Bronchial Brushings Gram Stain - Final 09/11/23 08:40 Bronchial Brushings Routine Culture - Preliminary Streptococcus viridans group Progress Note: A&P Assessment and plan (1) Asthma: Status: Acute (2) Vocal cord dysfunction: Status: Acute (3) KEITH (obstructive sleep apnea): Status: Acute (4) Stroke: Status: Acute Plan Patient is a 48 Y F with prior vocal cord dysfunction and bronchospasm post- operatively, as well as obstructive sleep apnea, severe asthma, followed by Juan A and Dr. Rico, previously on biologics and status post thermoplasty and necessitated follow-up bronchoscopy on 09/09; patient reportedly tolerated bronchoscopy well, though reportedly developed stridor and wheezing, was re- intubated in PACU, extubated 09/10; ICU course c/b L facial droop, L LE weakness, for which given TNK N: developed L facial droop, L LE weakness on 09/12 w/ reassuring imaging, given TNK 09/12 at 11:00; continues to endorse neurological symptoms not consistent with cerebral territory; appreciate neurology recommendations CV: no acute issues R: severe asthma, s/p thermoplasty; reportedly devleoped stridor/wheezing in PACU, likely component of vocal cord dysfunction, intubated 09/10, extubated 09/11; duonebs, steroids; appreciate pulmonology recommendations GI: PO diet : no acute issues H: no anticoagulation in setting of TNK administration ID: no acute issues E: no acute issues; diabetes mellitus Quality Stroke Does the patient have a stroke diagnosis?: No VTE Prior VTE?: No VTE Risk Level:: Medical - moderate - high VTE Device Contraindication: N/A - Device Ordered VTE Drug Contraindication: Treatment Not Tolerated
[2023-09-13] MEDS: ondansetron HCL 4 MG/2 ML VIAL IVPUSH (08:58)
[2023-09-13] MEDS: OXcarbazepine 150 MG TABLET PO (08:58)
[2023-09-13] MEDS: levETIRAcetam 1,000 MG TABLET 1000 MG PO ×2 (08:58→20:38)
[2023-09-13] MEDS: Sertraline HCL 50 MG TABLET PO (08:58)
[2023-09-13] MEDS: 0.9 % Sodium Chloride Flush 3 ML SYRINGE IVFLUSH ×3 (08:59→23:48)
[2023-09-13 11:06] LABS: Glucose, Whole Blood 102 mg/dL (60-115)
[2023-09-13] MEDS: Butalb/Acetamin/Caff 50/325/40 TABLET 1 TAB PO (14:04)
[2023-09-13] MEDS: cloNIDine HCL 0.1 MG TABLET PO (20:38)
[2023-09-13] MEDS: Melatonin 3 MG TABLET 6 MG PO (23:57)
[2023-09-14] VITALS: BP 116/67; PULSE 83; RESP 20; TEMP 36.2; O2SAT 95
[2023-09-14 03:55] VITALS: BP 117/78; PULSE 58; RESP 20; TEMP 36.1; O2SAT 92
[2023-09-14] MEDS: Butalb/Acetamin/Caff 50/325/40 TABLET 1 TAB PO (04:19)
[2023-09-14] MEDS: Omeprazole 20 MG CAPSULE.DR PO (06:04)
[2023-09-14 07:12] VITALS: BP 115/72; PULSE 83; RESP 16; TEMP 37; O2SAT 98
[2023-09-14] MEDS: Albuterol/Iprat 2.5/0.5MG 3 ML AMPUL.NEB INHALE (07:25)
[2023-09-14 07:26] LABS: Glucose, Whole Blood 145 mg/dL (60-115)
[2023-09-14 07:28] VITALS: PULSE 72; RESP 18; O2SAT 98
[2023-09-14 07:29] LABS: MANUAL DIFF FLAG NO
[2023-09-14 07:54] LABS: Anion Gap 10 (12-20); Blood Urea Nitrogen 18 mg/dL (9-16); Calcium 8.6 mg/dL (8.4-10.2); Carbon Dioxide 27 mmol/L (22-29); Chloride 106 mmol/L (96-108); Creatinine Clr Calc Pharmacy 101.7; Estimated Glomerular Filt Rate > 60; Glucose Random 84 mg/dL (60-115); Magnesium 2.1 mg/dL (1.6-2.6); Phosphorus 2.7 mg/dL (2.7-4.5); Potassium 3.9 mmol/L (3.3-5.1); Sodium 139 mmol/L (135-145)
[2023-09-14 07:56] LABS: Basophils Percent Auto 0.1 % (0-2); Eosinophils Percent Auto 0.4 % (0-4); Hemoglobin 11.2 g/dl (12.0-16.0); Imm Gran Abs Auto 0.03 X10*3/uL (0.00-0.03); Imm Gran Pct Auto 0.4 % (0.0-0.4); Lymphocytes Absolute Auto 3.1 X10*3/uL (1.2-4.9); Lymphocytes Percent Auto 40.4 % (20-40); Mean Corpuscular Volume 90.7 fL (80.0-98.0); Mean Platelet Volume 9.4 fL (9.4-12.3); Monocytes Absolute Auto 0.4 X10*3/uL (0.1-1.2); Monocytes Percent Auto 5.8 % (2-11); Neutrophils Percent Auto 52.9 % (45-73); Platelet Count 354 X10*3/uL (160-400); Red Blood Count 3.86 X10*6/uL (4.20-5.50); Red Cell Distribution Width 13.7 % (11.0-16.0); White Blood Count 7.6 X10*3/uL (4.8-10.8)
--- NOTE | 2023-09-14 08:25 | PM.DS ---
DS: Providers Provider Date of Service: 09/14/23 Date of admission: 09/11/23 09:35 Primary care physician: Martine Jones Consults: 09/12/23 10:11 Consult to Neurology Routine Consulting Provider: [facility] Reason for consultation: L Facial Droop, L LE Weakness 09/12/23 10:37 Consult to Neurology Routine Consulting Provider: Austen Raza Reason for consultation: Stroke Has provider been notified: Yes DS: Diagnosis Discharge Diagnosis (1) Asthma: Status: Acute (2) Vocal cord dysfunction: Status: Acute (3) KEITH (obstructive sleep apnea): Status: Acute (4) Stroke: Status: Acute DS: Summary Hospital Course Hospital Course: from initial hpi: 48 Y F with prior vocal cord dysfunction and bronchospasm post-operatively, as well as obstructive sleep apnea, severe asthma, followed by Juan A and Dr. Rico, previously on biologics and status post thermoplasty and necessitated follow-up bronchoscopy on 09/09; patient reportedly tolerated bronchoscopy well, though reportedly developed stridor and wheezing, was re-intubated in PACU hospital course: Patient was admitted for acute on chronic hypoxic respiratory failure in the setting of severe persistent asthma status post bronchoscopy. She was intubated for 11 and successfully extubated for 12. Course was complicated by acute episode of left facial droop, left lower extremity weakness and stroke code was called and given TNK. However, workup was negative for acute stroke, patient is signs and symptoms were inconsistent, acute stroke felt to be unlikely. Patient was evaluated by Physical therapy recommended short-term rehab, patient prefers to go home and will have home services with home PT. Time Attestation Discharge Coordination Time (in mins): 35 Quality: Safe Use of Opioids Does Pt have an Active Cancer Diagnosis on the Problem List?: No Quality: Stroke Does the patient have a stroke diagnosis?: No Physical Exam Vital Signs: Vital Signs: Last Vital Signs Temp 98.6 F 09/14/23 07:12 Pulse 72 09/14/23 07:28 Resp 18 09/14/23 07:28 BP 115/72 09/14/23 07:12 Pulse Ox 98 09/14/23 07:12 O2 Del Method Nasal Cannula 09/14/23 07:12 O2 Flow Rate 1 09/14/23 07:12 FiO2 21 09/12/23 07:00 BMI result Body Mass Index 37.9 General: AO X 3, no acute distress Resp: CTA bilateral, no accessory muscles used CVS: S1,S2,RRR GI: soft, non tender, non distended Neuro: motor grossly intact, alert Psych: appropriate affect, appropriate insight DS: Data Data Completed and Pending Pending studies at discharge: Pending at discharge 09/11/23 08:40 Cytology [PTH] Stat Labs on day of discharge: Laboratory Results - last 24 hr 09/13/23 09/14/23 09/14/23 11:04 06:18 07:22 WBC 7.6 RBC 3.86 L Hgb 11.2 L Hct 35.0 L MCV 90.7 MCH 29.0 MCHC 32.0 RDW 13.7 Plt Count 354 MPV 9.4 Immature Gran % (Auto) 0.4 Neut % (Auto) 52.9 Lymph % (Auto) 40.4 H [place] % (Auto) 5.8 Eos % (Auto) 0.4 Baso % (Auto) 0.1 Lymph # (Auto) 3.1 [place] # (Auto) 0.4 Eos # (Auto) 0.0 Baso # (Auto) 0.0 Abs Immat Gran (auto) 0.03 Absolute Neuts (auto) 4.0 Absolute Nucleated RBC 0.000 Nucleated RBC % (auto) 0.0 Sodium 139 Potassium 3.9 Chloride 106 Carbon Dioxide 27 Anion Gap 10 L BUN 18 H Creatinine 0.71 Estim Creat Clear Calc 101.7 Estimated GFR > 60 POC Glucose 102 145 H Random Glucose 84 Calcium 8.6 Phosphorus 2.7 Magnesium 2.1 Discharge Plan Discharge Anticipated Discharge Date/Time: 09/14/23 08:22 Patient Disposition: Home Health Service Discharge Diagnosis: asthma Referrals: Martine Jones [Primary Care Provider] - 1 Week Discharge Medications: Continued cetirizine 10 mg tablet 10 mg PO DAILY Qty: 90 0RF benzonatate 200 mg capsule 200 mg PO BID PRN (Reason: cough) 30 Days Qty: 60 5RF montelukast 10 mg tablet 10 mg PO DAILY Qty: 30 11RF albuterol sulfate [Ventolin HFA] 90 mcg/actuation HFA aerosol inhaler 2 puff PO Q6H PRN (Reason: for wheezing) Qty: 18 0RF omeprazole 20 mg capsule,delayed release(DR/EC) 20 mg PO BID Qty: 60 6RF arformoterol [Brovana] 15 mcg/2 mL solution for nebulization 2 ml inhalation Q12H 30 Days Qty: 120 11RF roflumilast 500 mcg tablet 500 mcg PO DAILY Qty: 90 0RF meloxicam 7.5 mg tablet 7.5 mg PO DAILY levetiracetam [Keppra] 1,000 mg tablet 1,000 mg PO BID melatonin 3 mg tablet 3 - 6 mg PO BEDTIME PRN (Reason: insomnia) acetaminophen 500 mg tablet 1,000 mg PO TID cholecalciferol (vitamin D3) 50 mcg (2,000 unit) tablet 50 mcg PO DAILY oxcarbazepine 300 mg tablet 150 mg PO DAILY epinephrine [EpiPen 2-Christian] 0.3 mg/0.3 mL auto-injector 0.3 mg IM Q10M PRN (Reason: anaphylaxis) 30 Days Qty: 2 6RF Rx Instructions: for 2 doses clonidine HCl 0.1 mg tablet 0.1 mg PO BEDTIME guaifenesin 100 mg/5 mL liquid 200 mg PO Q4H PRN (DME) [place] [facility] [place] .R[place]TE Rx Instructions: As directed sertraline 50 mg tablet 50 mg PO DAILY levalbuterol HCl 1.25 mg/3 mL solution for nebulization 1.25 mg inhalation BID 30 Days Qty: 360 11RF loratadine [Claritin] 10 mg tablet 10 mg PO DAILY 30 Days Qty: 30 11RF budesonide 0.5 mg/2 mL suspension for nebulization 0.5 mg inhalation BID 30 Days Qty: 120 11RF Spiriva Respimat 2.5 mcg/actuation mist 2 puff inhalation DAILY 30 Days Qty: 1 11RF codeine-guaifenesin 10-100 mg/5 mL liquid 10 ml PO Q6H PRN (Reason: cough) 10 Days Qty: 300 0RF levalbuterol tartrate [Xopenex HFA] 45 mcg/actuation HFA aerosol inhaler 2 puff inhalation Q6H PRN (Reason: shortness of breath or wheezing) 30 Days Qty: 15 11RF Discharge Orders: Discharge Order (Routine); Ordered 09/14/23 Ordered By: Nacho Hummel Diet: Advance to usual diet Activity on Discharge: As tolerated Stand Alone Forms: Patient Portal Discharge page Print Language: [place] Care Plan Goals: recovery Health Concerns: asthma Plan of Treatment: follow up with pulmonary, home pt Assessment: see above
--- NOTE | 2023-09-14 08:34 | P.F2F_ITS ---
Service Date Service Date: 09/14/23 Encounter Date of encounter: 09/14/23 Reasons for Services Signs and symptoms assessed: sob on exertion Reason for physical therapy: home safety and mobility and therapeutic exercises Homebound: Leaving the home is medically contraindicated at this time without the asist of a device and/or another person due th the listed conditions above and below. Reason homebound: shortness of breath with minimal effort Certification: Based on the above findings, I certify that this patient is confined to the home and needs intermittent detention care, physical therapy and/or speech therapy, or continues to need occupational therapy. The patient is under my care, and I have initiated the establishment of the plan of care. The patient will be followed by a physician who will periodically review the plan of care. Time Spent With Patient Time: Total time managing care of this patient today ____ minutes.
[2023-09-14] MEDS: OXcarbazepine 150 MG TABLET PO (09:07)
[2023-09-14] MEDS: Sertraline HCL 50 MG TABLET PO (09:07)
[2023-09-14] MEDS: levETIRAcetam 1,000 MG TABLET 1000 MG PO (09:07)
--- NOTE | 2023-09-14 11:04 | MHC.CM.PN ---
Pt is medically cleared for D/C home with resumption of previous [employer]ATOR [employer]ER services and new VNA. Referral sent to [facility] accepting [facility], awaiting acceptance form a VNA agency. Pts spouse to transport her home.
== END 2023-09-14 09:30 | disposition home health service (06) | DRG 141 ==
LOC: HO.SSSA 09:40 → HO.ICU 09:44 → HO.IMC 09-13 12:11
PROVIDERS: Hospitalist; Admitting Provider Internal Medicine Critical Care Medicine; PCP Internal Medicine; Visit Provider Internal Medicine
PROC: 0BJ08ZZ Inspection of Tracheobronchial Tree, Via Natural or Artificial Opening Endoscopic (ICD-10-PCS; CPT 31622; principal; 2023-09-11 08:00)
DX: J45.51 Severe persistent asthma with (acute) exacerbation (principal); J96.21 Acute and chronic respiratory failure with hypoxia; R13.19 Other dysphagia; G81.94 Hemiplegia, unspecified affecting left nondominant side; R29.810 Facial weakness; G47.33 Obstructive sleep apnea (adult) (pediatric); J38.3 Other diseases of vocal cords; Z79.899 Other long term (current) drug therapy
CPT/HCPCS: 36415; 36600; 70450; 70496; 70498; 70551; 71045; 80048; 80061; 82040; 82803; 82947; 83036; 83735; 84100; 84484; 85025; 85610; 87070; 87077; 87102; 87107; 87116; 87186; 87205; 87206; 88112; 93005; 93306; 94002; 94003; 97162; 99499; C1758; C9113; J0171; J1100; J1644; J2060; J2250; J2405; J2704; J3010; J3101

== ENCOUNTER 2023-09-11 09:35 | Outpatient (BNV) | payer OTHER, SELFPAY | END 2023-09-12 07:00 | PROVIDERS: Admitting Provider Internal Medicine Critical Care Medicine; PCP Internal Medicine; Visit Provider Internal Medicine Cardiovascular Disease | DX: I36.1 Nonrheumatic tricuspid (valve) insufficiency (principal) | CPT/HCPCS: 93010; 93306 ==

== ENCOUNTER → 2023-09-11 09:35 | Outpatient (BNV) | payer OTHER, SELFPAY | PROVIDERS: Admitting Provider Internal Medicine Critical Care Medicine; PCP Internal Medicine; Visit Provider Internal Medicine Critical Care Medicine | DX: J45.51 Severe persistent asthma with (acute) exacerbation (principal); G47.33 Obstructive sleep apnea (adult) (pediatric); J38.3 Other diseases of vocal cords; R13.19 Other dysphagia | CPT/HCPCS: 99222; 99291; 99499 ==

== ENCOUNTER → 2023-09-11 09:35 | Outpatient (BNV) | payer OTHER, SELFPAY | PROVIDERS: Admitting Provider Internal Medicine Critical Care Medicine; PCP Internal Medicine; Visit Provider Psychiatry & Neurology Neurology | DX: I69.354 Hemiplegia and hemiparesis following cerebral infarction affecting left non-dominant side (principal) | CPT/HCPCS: 99223 ==

== ENCOUNTER → 2023-09-11 09:35 | Outpatient (BNV) | payer OTHER, SELFPAY | PROVIDERS: Admitting Provider Internal Medicine Critical Care Medicine; PCP Internal Medicine; Visit Provider Internal Medicine | DX: J45.51 Severe persistent asthma with (acute) exacerbation (principal); J38.3 Other diseases of vocal cords; G47.33 Obstructive sleep apnea (adult) (pediatric); I63.9 Cerebral infarction, unspecified | CPT/HCPCS: 99239; G0180 ==

== ENCOUNTER 2023-11-19 08:24 | Outpatient (AMB) | payer OTHER, SELFPAY ==
[2023-11-19 08:37] VITALS: PULSE 89; O2SAT 99; BMI 35.9
--- NOTE | 2023-11-19 08:37 | A.OFFVIS_ITS ---
Vital Signs 11/19/23 08:37 Height 5 ft 1 in Weight 190 lb BMI 35.9 Pulse 89 Pulse Source Pulse Oximeter Pulse Oximetry (%) 99 Oxygen Delivery Method Room Air Intake Visit Reasons: Asthma Ethernet Network Architect Required: No Allergies tramadol [TRAMADOL] Allergy (Severe, Verified 11/19/23 08:39) THROAT SWELLING HPI Comments Details: The patient is a 47-year-old woman with a known history of severe persistent asthma s/p tracheobronplasty. 05/06/2023 the patient is here for a pulmonary follow-up visit. This is a preoperative evaluation. The patient does have severe persistent asthma. She recently started a new biologic regimen which appears to be effective for. During the last visit in March she did require antibiotics and prednisone. Clinically she is doing significantly better now on the biologics. The patient has been using her maintenance therapy and also her rescue medicine as needed. However, has not required any additional antibiotics or prednisone. She continues the tezspire every 4 weeks. Unfortunately, a 7 did the she is having significant knee pain. She did follow-up with orthopedic surgery and there was no other option but surgery. Therefore, she is here for preoperative evaluation. Clinically she is doing a lot better without any significant wheezing on examination. She is also with good adherence with respiratory therapy. I do not see any reason for her not to have surgery at this time as this is a very good window of opportunity for her to undergo her surgery. She has tolerated general anesthesia in the past. Post procedure and anesthesia she has had issue with vocal cord dysfunction therefore needs to be monitor. She is also has history significant bronchospasms after surgery. Therefore, she should also be provided with post bronchodilator therapy. I foresee that she will do well even with her significant asthma. Specially, since she is on a better regimen of medications at this time and seems to be controlling her asthma very well. 08/08/2023 the patient is here for pulmonary follow-up visit. since we last spoke she did undergo her knee surgery. After anesthesia she would not wake up and she likely had a prolonged period of intubation. The patient is high risk because of her asthma and was provided to her surgeons. But, she did well and she was able to be discharged home. Ultimately after that the patient was evaluated at [facility] and she was kept for is significant asthma exacerbation. They wanted to evaluate her airway by performing a bronchoscopy after pneumo plasty specially since it was not helping. But, she wants to do it locally. I explained to her that she is probably better off doing a Juan A but she is reluctant to do so in agreeable to do the bronchoscopy locally for her. The patient also has not been coming in for her biologic injections, Tezspire. She states initially was because she which is status post a new surgery then after that multiple admissions to [facility]. On further questioning though the patient states that she really did not see any significant improvement while on the biologic therapy. I do not think she gave enough time to see. But at this point which is discontinue the medication we can also reassess in the future depending on her bronchoscopy. She will continue with the current respiratory therapy although will switch her to nebulized therapy at this time. 11/19/2023 the patient is here for a pulmonary follow-up visit. She has been on the voriconazole for the Aspergillus bronchitis. She did go to [facility] and she was taken off it. She did have a repeat bronchoscopy and they found per reports similar findings. After the bronchoscopy she was then taken to the ICU for several days that she would not wake up. The patient has been having worsening asthma symptoms lately. She has been off the test fired. She did have some adverse effects but she would like to be tried again since it was helping some. She does continue with respiratory therapy. She wants to switch inhalers again. She stopped using the Brovana and the budesonide. Will go ahead and place her back on the Advair along with Spiriva that she is already taking. Will go ahead and refer the patient for infectious disease evaluation. She continues on the voriconazole. She does have an ENT appointment in [place] soon. She has contemplating not going. She is having hard time with the travel. She is also concerned about having any additional procedures which she has been intubated and sent to the ICU multiple times. [facility] Medical History (Updated 11/19/23 @ 08:48 by Haresh Rico MD) Aspergillus bronchitis Tachycardia Asthma-COPD overlap syndrome KEITH (obstructive sleep apnea) Chronic allergic rhinitis COVID-19 Nasal airway abnormality Dysphagia Asthma Surgical History Hx of hysterectomy History of lung surgery History of total left knee replacement History of bunionectomy History of bronchoscopy Family History Paternal Grandfather Cancer Other Asthma Social History Household Members: Spouse Alcohol intake: current Alcohol intake frequency: holidays/special occasions only Alcohol type: wine Patient Tobacco Use Status: Never used Tobacco service: No Current occupational status: retired Review of Systems Const Denies chills, Denies fever(s), Denies headache(s), Denies night sweats and Reports weight loss ENT Denies change in voice, Denies headache(s), Denies lip swelling, Denies mouth pain, Reports nasal congestion, Reports nasal discharge and Denies tongue swelling Card Denies chest pain and Reports dyspnea on exertion Resp Denies change in phlegm color, Reports chest congestion, Reports cough, Denies hemoptysis, Reports dyspnea on exertion and Reports wheezing GI Denies abdominal pain Musc Reports as per HPI, Reports abnormal gait, Reports myalgias, Reports arthralgias and Reports limited range of motion Neuro Denies Neuro-related abnormal movements, Reports abnormal gait and Denies headache(s) Psych Denies no additional complaints Oleksandr/Lymph Denies easy bleeding and Denies lymphadenopathy Aller/Immun Denies lip swelling, Denies tongue swelling and Reports wheezing Physical Exam Vital Signs: Last Vital Signs Pulse 89 11/19/23 08:37 Pulse Ox 99 11/19/23 08:37 Oxygen Delivery Method Room Air 11/19/23 08:37 BMI result Body Mass Index 35.9 Const General: alert Neck Neck: Yes normal visual inspection, Yes full ROM and Yes no lymphadenopathy Chest Chest palpation & inspection: normal inspection of the chest Resp Effort & Inspection: normal respiratory effort Auscultation: wheezes and diminished lung sounds Cardio Rate: regular rate Rhythm: regular rhythm Heart sounds: S1 normal heart sound present and S2 normal heart sound present GI Palpation (GI): Soft to palpation and nontender Auscultation: normal bowel sounds Skin General skin exam: rashes and/or lesions noted Results Reviewed Results Reviewed: RUN: 11/19/23 645 PAGE 1 [facility] [address] [place] [id number] Senior Solutions Consultant: Fish P. Crooks, M.D. Specimen Inquiry Name: Katarzyna Montalvo Age/Sex: 48/F : 1975 Unit#: [id number] Attend Dr: Nacho Hummel MD Re09/11/23 Status: DIS IN Location: [facility] 443-1 Disch: 09/14/23 Specimen: [id number] Collected: 09/11/23 Status: COMP Req#: [id number] Received: 09/11/23 Source: [facility] Desc: Subm Dr: Haresh Rico MD Ordered: Mireille Cult Other Procedure Result Verified Fungus Cult Other Final 10/03/23 Organism 1 Aspergillus fumigatus Quantity Isolated Organism 2 Aspergillus nidulans Quantity Isolated Tests performed at: [facility] [address] [facility] [address] [address] [address] Assessment & Plan Assessment & Plan (1) Asthma: Comment: s/p Thermoplasty Code(s): J45.909 - Unspecified asthma, uncomplicated Category: Medical Qualifiers: Asthma complication type: with acute exacerbation Asthma persistence: persistent Asthma severity: severe Qualified Code(s): J45.51 - Severe persistent asthma with (acute) exacerbation (2) Chronic allergic rhinitis: Code(s): J30.9 - Allergic rhinitis, unspecified Category: Medical (3) Asthma-COPD overlap syndrome: Comment: taking multiple inhalers/nebulizers Code(s): J44.9 - Chronic obstructive pulmonary disease, unspecified Category: Medical (4) Aspergillus bronchitis: Code(s): B44.1 - Other pulmonary aspergillosis; J99 - Respiratory disorders in diseases classified elsewhere Category: Medical Plan stop Breztri BID stop Budesonide BID stop Brovana BID start Spiriva daily start Advair HFA continue Xopenex to minimize tachycardia continue nebulized therapy as needed continue Daliresp Epi pen as needed cough medicine restart Tezspire (monitor musculoskeletal adverse effects) ID referral bloodwork F/U 4-6 weeks Orders: Orders Immunoglobulin E Today B44.1 - Other pulmonary aspergillosis, J44.9 - Chronic obstructive pulmonary disease, unspecified, J99 - Respiratory disorders in diseases classified elsewhere Immunoglobulin G Subclasses Today B44.1 - Other pulmonary aspergillosis, J44.9 - Chronic obstructive pulmonary disease, unspecified, J99 - Respiratory disorders in diseases classified elsewhere Liver Panel Today B44.1 - Other pulmonary aspergillosis, J44.9 - Chronic obstructive pulmonary disease, unspecified, J99 - Respiratory disorders in diseases classified elsewhere HIV Ab/Ag Today B44.1 - Other pulmonary aspergillosis, J44.9 - Chronic obstructive pulmonary disease, unspecified, J99 - Respiratory disorders in diseases classified elsewhere Aspergillus Ag EIA Today B44.1 - Other pulmonary aspergillosis, J44.9 - Chronic obstructive pulmonary disease, unspecified, J99 - Respiratory disorders in diseases classified elsewhere Immunoglobulins,IgG IgA IgM Today B44.1 - Other pulmonary aspergillosis, J44.9 - Chronic obstructive pulmonary disease, unspecified, J99 - Respiratory disorders in diseases classified elsewhere Complete Blood Count Auto Diff Today B44.1 - Other pulmonary aspergillosis, J44.9 - Chronic obstructive pulmonary disease, unspecified, J99 - Respiratory disorders in diseases classified elsewhere Basic Metabolic Panel Today B44.1 - Other pulmonary aspergillosis, J44.9 - Chronic obstructive pulmonary disease, unspecified, J99 - Respiratory disorders in diseases classified elsewhere Referrals Infectious Disease Referral B44.1 - Other pulmonary aspergillosis, J99 - Respiratory disorders in diseases classified elsewhere Medications: New prednisone PO daily; Take 6 tabs daily x 3 days, then 5 tabs x 3 days, then 4 tabs x 3 days, then 3 tabs x 3 days, then 2 tabs daily x 3 days, then 1 tab x 3 days to complete. 18 days 63 tabs 0RF fluticasone propion-salmeterol 230-21 mcg/actuation (Advair HFA) 2 puffs inhalation BID 30 days 12 grams 11RF albuterol sulfate 90 mcg/actuation 2 inhalations inhalation Q6H 30 days PRN 18 grams 12RF shortness of breath or wheezing J44.9 - Chronic obstructive pulmonary disease, unspecified ipratropium-albuterol 0.5 mg-3 mg(2.5 mg base)/3 mL 3 mL inhalation QID 30 days 360 mL 11RF J44.9 - Chronic obstructive pulmonary disease, unspecified codeine-guaifenesin 10-100 mg/5 mL 10 mL PO Q6H 10 days PRN 300 mL 0RF cough doxycycline monohydrate 100 mg PO BID 14 days 28 tabs 0RF Coding Level of Care Code Est Pt Level 5 (76232) Diagnoses Severe persistent asthma with acute exacerbation J45.51 Asthma complication type: with acute exacerbation Asthma persistence: persistent Asthma severity: severe Chronic allergic rhinitis J30.9 Asthma-COPD overlap syndrome J44.9 Aspergillus bronchitis B44.1; J99 Time Spent (min) 35
== END 2023-11-19 09:02 | disposition home or self-care (01) ==
PROVIDERS: PCP Internal Medicine; Visit Provider Hospitalist
DX: J45.51 Severe persistent asthma with (acute) exacerbation (principal); J30.9 Allergic rhinitis, unspecified; J44.9 Chronic obstructive pulmonary disease, unspecified; B44.1 Other pulmonary aspergillosis; J99 Respiratory disorders in diseases classified elsewhere
CPT/HCPCS: 99215

== ENCOUNTER → 2023-11-19 08:24 | Outpatient (BNVA) | payer OTHER, SELFPAY | PROVIDERS: PCP Internal Medicine; Visit Provider Hospitalist | DX: J45.51 Severe persistent asthma with (acute) exacerbation (principal); J30.9 Allergic rhinitis, unspecified | CPT/HCPCS: 99212 ==

== ENCOUNTER 2024-03-22 10:16 | Emergency (ER) | payer OTHER, SELFPAY ==
[2024-03-22 10:37] VITALS: BP 141/84; PULSE 82; RESP 16; TEMP 36.9; O2SAT 98; BMI 34.0
== END 2024-03-22 17:07 | disposition left against medical advice (07) ==
LOC: HO.ED 16:58
PROVIDERS: Emergency Provider Emergency Medicine
DX: R51.9 Headache, unspecified (principal); Z53.21 Procedure and treatment not carried out due to patient leaving prior to being seen by health care provider
CPT/HCPCS: 99281

== ENCOUNTER 2024-04-20 10:27 | Outpatient (AMB) | payer OTHER, SELFPAY ==
--- NOTE | 2024-04-20 10:40 | A.OFFVIS_ITS ---
Vital Signs 04/20/24 10:42 Height 5 ft 1 in Weight 203 lb 14.841 oz BMI 38.5 BP 136/82 Blood Pressure Location Lt brachial Position Sitting Pulse 108 H Pulse Source Pulse Oximeter Pulse Oximetry (%) 98 Oxygen Delivery Method Room Air Intake Visit Reasons: asthma Hedis Manager Required: No [employer] Of [employer]: Chief Of [employer] offered & declined Accompanied by: Self / Same As Patient Allergies tramadol [TRAMADOL] Allergy (Severe, Verified 04/20/24 10:45) THROAT SWELLING Medication List - Last Reconciled 04/20/24 by Natalia Roberts LPN acetaminophen 1,000 mg PO TID albuterol sulfate 90 mcg/actuation 2 inhalations inhalation Q6H PRN 30 days benzonatate 200 mg PO BID PRN 30 days budesonide 0.5 mg (2 mL) inhalation BID 30 days nludnjhatr-sfiydywg-kiicfauukg 160-9-4.8 mcg/actuation (Breztri Aerosphere) inhalations inhalation cetirizine 10 mg PO DAILY cholecalciferol (vitamin D3) 50 mcg PO DAILY clarithromycin 500 mg PO BID clonidine HCl 0.1 mg PO BEDTIME codeine-guaifenesin 10-100 mg/5 mL 10 mL PO Q6H PRN 10 days codeine-guaifenesin 10-100 mg/5 mL 10 mL PO Q6H PRN 10 days doxycycline monohydrate 100 mg PO BID 14 days epinephrine (EpiPen 2-Christian) 0.3 mg (0.3 mL) IM Q10M PRN 30 days fluconazole 400 mg PO DAILY fluticasone propion-salmeterol 230-21 mcg/actuation (Advair HFA) 2 puffs inhalation BID 30 days formoterol fumarate (Perforomist) 20 mcg (2 mL) inhalation BID 30 days guaifenesin 200 mg PO Q4H PRN ipratropium-albuterol 0.5 mg-3 mg(2.5 mg base)/3 mL 3 mL inhalation QID 30 days ipratropium-albuterol 20-100 mcg/actuation (Combivent Respimat) 1 puff inhalation QID levalbuterol HCl 1.25 mg (3 mL) inhalation BID 30 days levalbuterol tartrate 45 mcg/actuation (Xopenex HFA) 2 puffs inhalation Q6H PRN 30 days levetiracetam (Keppra) 1,000 mg PO BID loratadine (Claritin) 10 mg PO DAILY 30 days melatonin 3 - 6 mg PO BEDTIME PRN meloxicam 7.5 mg PO DAILY montelukast 10 mg PO DAILY nebulizers As directed omeprazole 20 mg PO BID oxcarbazepine 150 mg PO DAILY prednisone PO daily; Take 6 tabs daily x 3 days, then 5 tabs x 3 days, then 4 tabs x 3 days, then 3 tabs x 3 days, then 2 tabs daily x 3 days, then 1 tab x 3 days to complete. 18 days roflumilast 500 mcg PO DAILY sertraline 50 mg PO DAILY sulfamethoxazole-trimethoprim 400-80 mg 1 tab PO 3XW tezepelumab-ekko (Tezspire) 210 mg (1.91 mL) subcut Q4W Ventolin HFA 90 mcg/actuation (albuterol sulfate) 2 puffs PO Q6H PRN NS voriconazole 200 mg PO Q12H 30 days HPI Comments Details: The patient is a 48-year-old woman with a known history of severe persistent asthma s/p tracheobronplasty. 05/06/2023 the patient is here for a pulmonary follow-up visit. This is a preoperative evaluation. The patient does have severe persistent asthma. She recently started a new biologic regimen which appears to be effective for. During the last visit in March she did require antibiotics and prednisone. Clinically she is doing significantly better now on the biologics. The patient has been using her maintenance therapy and also her rescue medicine as needed. However, has not required any additional antibiotics or prednisone. She continues the tezspire every 4 weeks. Unfortunately, a 7 did the she is having significant knee pain. She did follow-up with orthopedic surgery and there was no other option but surgery. Therefore, she is here for preoperative evaluation. Clinically she is doing a lot better without any significant wheezing on examination. She is also with good adherence with respiratory therapy. I do not see any reason for her not to have surgery at this time as this is a very good window of opportunity for her to undergo her surgery. She has tolerated general anesthesia in the past. Post procedure and anesthesia she has had issue with vocal cord dysfunction therefore needs to be monitor. She is also has history significant bronchospasms after surgery. Therefore, she should also be provided with post bronchodilator therapy. I foresee that she will do well even with her significant asthma. Specially, since she is on a better regimen of medications at this time and seems to be controlling her asthma very well. 08/08/2023 the patient is here for pulmonary follow-up visit. since we last spoke she did undergo her knee surgery. After anesthesia she would not wake up and she likely had a prolonged period of intubation. The patient is high risk because of her asthma and was provided to her surgeons. But, she did well and she was able to be discharged home. Ultimately after that the patient was evaluated at [facility] and she was kept for is significant asthma exacerbation. They wanted to evaluate her airway by performing a bronchoscopy after pneumo plasty specially since it was not helping. But, she wants to do it locally. I explained to her that she is probably better off doing a Juan A but she is reluctant to do so in agreeable to do the bronchoscopy locally for her. The patient also has not been coming in for her biologic injections, Tezspire. She states initially was because she which is status post a new surgery then after that multiple admissions to [facility]. On further questioning though the patient states that she really did not see any significant improvement while on the biologic therapy. I do not think she gave enough time to see. But at this point which is discontinue the medication we can also reassess in the future depending on her bronchoscopy. She will continue with the current respiratory therapy although will switch her to nebulized therapy at this time. 11/19/2023 the patient is here for a pulmonary follow-up visit. She has been on the voriconazole for the Aspergillus bronchitis. She did go to [facility] and she was taken off it. She did have a repeat bronchoscopy and they found per reports similar findings. After the bronchoscopy she was then taken to the ICU for several days that she would not wake up. The patient has been having worsening asthma symptoms lately. She has been off the test fired. She did have some adverse effects but she would like to be tried again since it was helping some. She does continue with respiratory therapy. She wants to switch inhalers again. She stopped using the Brovana and the budesonide. Will go ahead and place her back on the Advair along with Spiriva that she is already taking. Will go ahead and refer the patient for infectious disease evaluation. She continues on the voriconazole. She does have an ENT appointment in [place] soon. She has contemplating not going. She is having hard time with the travel. She is also concerned about having any additional procedures which she has been intubated and sent to the ICU multiple times. 04/20/2024 the patient is here for pulmonary follow-up visit. She had a very eventful few months. The patient had significant Aspergillus bronchitis when she was here during the last bronchoscopy. Then she went to [facility] which she had multiple bronchoscopies demonstrating persistence of it. 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 She has been placed on multiple antifungal therapies but she has has significant na usea vomiting likely lack of absorption. She may need IV infusions of the anti fungal therapy. Therefore showed talk further to the folks at [facility] to see if they can arrange for her to receive IV therapy ideally with voriconazole. This is something that would have to be done as an inpatient because she will need a PICC line. In addition to that the patient continues with respiratory therapy. She has been getting all her inhalers. Although she continues have wheezing. I did encourage to continue with [facility] since they have all the tertiary resources available for her. If she has any issues or concerns she can always call here will follow-up in 6-8 weeks. If she has any worsening symptoms she will call for an earlier assessment. [facility] Medical History (Updated 11/19/23 @ 08:48 by Haresh Rico MD) Aspergillus bronchitis Tachycardia Asthma-COPD overlap syndrome KEITH (obstructive sleep apnea) Chronic allergic rhinitis COVID-19 Nasal airway abnormality Dysphagia Asthma Surgical History Hx of hysterectomy History of lung surgery History of total left knee replacement History of bunionectomy History of bronchoscopy Family History Paternal Grandfather Cancer Other Asthma Social History Household Members: Spouse Alcohol intake: current Alcohol intake frequency: holidays/special occasions only Alcohol type: wine Patient Tobacco Use Status: Never used Tobacco service: No Current occupational status: retired Review of Systems Const Denies chills, Denies fever(s), Denies headache(s), Denies night sweats and Reports weight loss ENT Denies change in voice, Denies headache(s), Denies lip swelling, Denies mouth pain, Reports nasal congestion, Reports nasal discharge and Denies tongue swelling Card Denies chest pain and Reports dyspnea on exertion Resp Denies change in phlegm color, Reports chest congestion, Reports cough, Denies hemoptysis, Reports dyspnea on exertion and Reports wheezing GI Denies abdominal pain Musc Reports as per HPI, Reports abnormal gait, Reports myalgias, Reports arthralgias and Reports limited range of motion Neuro Denies Neuro-related abnormal movements, Reports abnormal gait and Denies headache(s) Psych Denies no additional complaints Oleksandr/Lymph Denies easy bleeding and Denies lymphadenopathy Aller/Immun Denies lip swelling, Denies tongue swelling and Reports wheezing Physical Exam Vital Signs: Last Vital Signs Pulse 108 H 04/20/24 10:42 BP 136/82 04/20/24 10:42 Pulse Ox 98 04/20/24 10:42 Oxygen Delivery Method Room Air 04/20/24 10:42 BMI result Body Mass Index 38.5 Const General: alert Neck Neck: Yes normal visual inspection, Yes full ROM and Yes no lymphadenopathy Chest Chest palpation & inspection: normal inspection of the chest Resp Effort & Inspection: normal respiratory effort Auscultation: wheezes and diminished lung sounds Cardio Rate: regular rate Rhythm: regular rhythm Heart sounds: S1 normal heart sound present and S2 normal heart sound present GI Palpation (GI): Soft to palpation and nontender Auscultation: normal bowel sounds Skin General skin exam: rashes and/or lesions noted Assessment & Plan Assessment & Plan (1) Asthma: Comment: s/p Thermoplasty Code(s): J45.909 - Unspecified asthma, uncomplicated Category: Medical Qualifiers: Asthma severity: severe Asthma persistence: persistent Asthma complication type: with acute exacerbation Qualified Code(s): J45.51 - Severe persistent asthma with (acute) exacerbation (2) Chronic allergic rhinitis: Code(s): J30.9 - Allergic rhinitis, unspecified Category: Medical (3) Asthma-COPD overlap syndrome: Comment: taking multiple inhalers/nebulizers Code(s): J44.9 - Chronic obstructive pulmonary disease, unspecified Category: Medical (4) Aspergillus bronchitis: Code(s): B44.1 - Other pulmonary aspergillosis; J99 - Respiratory disorders in diseases classified elsewhere Category: Medical Plan continue Breztri continue Xopenex to minimize tachycardia continue nebulized therapy as needed Epi pen as needed cough medicine Tezspire (monitor musculoskeletal adverse effects) F/U with Juan A F/U 4-6 weeks Medications: New nystatin swish and swallow 1 mL PO QID 120 mL 6RF 30 days codeine-guaifenesin 10-100 mg/5 mL 10 mL PO Q6H PRN 300 mL 0RF cough 10 days Coding Level of Care Code Est Pt Level 4 (01720) Complex EM visit Add On G2211 Diagnoses Severe persistent asthma with acute exacerbation J45.51 Asthma severity: severe Asthma persistence: persistent Asthma complication type: with acute exacerbation Chronic allergic rhinitis J30.9 Asthma-COPD overlap syndrome J44.9 Aspergillus bronchitis B44.1; J99 Time Spent (min) 17
[2024-04-20 10:42] VITALS: BP 136/82; PULSE 108; O2SAT 98; BMI 38.5
== END 2024-04-20 11:09 | disposition home or self-care (01) ==
PROVIDERS: Visit Provider Hospitalist
DX: J45.51 Severe persistent asthma with (acute) exacerbation (principal); J30.9 Allergic rhinitis, unspecified; J44.9 Chronic obstructive pulmonary disease, unspecified; B44.1 Other pulmonary aspergillosis; J99 Respiratory disorders in diseases classified elsewhere
CPT/HCPCS: 99214; G2211

== ENCOUNTER → 2024-04-20 10:27 | Outpatient (BNVA) | payer OTHER, SELFPAY | PROVIDERS: Visit Provider Hospitalist | DX: J45.51 Severe persistent asthma with (acute) exacerbation (principal); J30.9 Allergic rhinitis, unspecified; J44.9 Chronic obstructive pulmonary disease, unspecified; B44.1 Other pulmonary aspergillosis; J99 Respiratory disorders in diseases classified elsewhere | CPT/HCPCS: 99212 ==